=== PATIENT | male | born 1980 | race Caucasian/White ===

== ENCOUNTER 2024-10-19 16:06 | Emergency (ER) | payer OTHER, SELFPAY ==
--- NOTE | 2024-10-19 16:08 | ED_ITS ---
HPI - URI/Sore Throat General Chief Complaint: Asthma Stated Complaint: asthmatic,chest heavy,nose stuffy Time Seen by Provider: 10/19/24 16:08 Source: patient Mode of arrival: ambulatory Limitations: no limitations History of Present Illness HPI Narrative: Lionel is a 44-year-old year old male patient presenting to the clinic today with complaints chest congestion, chest tightness, stuffy nose, nasal drainage, and cough. He reports symptoms have been going on for approximately 3 weeks since he was positive for influenza A.. States cough is productive at times with some yellow phlegm. He denies any fever chills. History of asthma. MD elicited complaint: sore throat and nasal congestion Related Data Allergies Allergy/AdvReac Type Severity Reaction Status Date / Time tramadol Allergy Intermediate Rash Verified 10/19/24 16:26 Review of Systems Review of Systems: Pertinent positives per HPI. Patient denies any fever, chills, rash, headache, visual changes, dizziness, chest pain, palpitations, nausea, vomiting, diarrhea, constipation, abdominal pain, or any urinary issues. PMFSH Comments At the time of my signature, I reviewed and agree with the nursing past medical, surgical, social, and family history. There is no relevant family history pertinent to the patient complaint. Exam Narrative: General: Well-developed, well nourished, in no apparent distress Head: Normocephalic, atraumatic Eyes: Pupils equally round and reactive to light bilaterally, EOM intact, sclera and conjunctive clear, no discharge, lids normal Ears: TMs intact and clear, ear canals clear, no drainage, grossly hearing normal. Nose: Nares patent, clear nasal discharge, no inflammation, no sinus tenderness. Mouth: Oral pharynx without lesions or masses, good dentition, MMM. Neck: Supple, trachea midline, no enlargement of anterior or posterior cervical nodes, no thyroid masses or goiter palpable. Cardio: Regular rate and rhythm, s1 and s2 normal, no murmur appreciated. Resp: Clear to auscultation bilaterally, no rhonchi, rales, wheezing or rubs Course Course Emergency Course: Portions of this record may have been created with voice recognition software. Level of Care: Express Care Visit Vital Signs Vital signs: Vital Signs Temperature 36.8 C 10/19/24 16:20 Pulse Rate 97 10/19/24 16:20 Respiratory Rate 16 10/19/24 16:20 Blood Pressure 129/69 10/19/24 16:20 Pulse Oximetry 98 10/19/24 16:20 Oxygen Delivery Room Air 10/19/24 16:20 Temperature 36.8 C 10/19/24 16:20 Pulse Rate 97 10/19/24 16:20 Respiratory Rate 16 10/19/24 16:20 Blood Pressure 129/69 10/19/24 16:20 Pulse Oximetry 98 10/19/24 16:20 Oxygen Delivery Room Air 10/19/24 16:20 Vital signs reviewed MDM - URI/Sore Throat MDM Narrative Medical decision making narrative: At the time of visit patient is resting comfortably on the exam table. Patient appears to be nontoxic. Plan: I suspect patient has asthma exacerbation. Prescription for prednisone and albuterol inhaler was sent to the pharmacy. Supportive measures were discussed with the patient and they voiced understanding discharge instructions and agrees to treatment plan. Return precautions reviewed Differential Diagnosis Differential diagnosis: Likely upper respiratory infection, otitis media, sinusitis, viral infection, bronchitis, influenza, pharyngitis and other (COVID) Discharge Plan Discharge Clinical Impression: Asthma Qualifiers: Asthma severity: unspecified severity Asthma persistence: unspecified Asthma complication type: unspecified Qualified Code(s): J45.909 - Unspecified asthma, uncomplicated Patient Disposition: Home, Self-Care Condition: Stable Instructions: Antibiotic Form, Asthma (ED) Additional Instructions: Take prescription medications only as prescribed-albuterol inhaler prednisone Increase fluids and stay well hydrated Tylenol/motrin for pain/fever Flonase and OTC antihistamines as directed Vicks vapor rub to open sinuses Sinus rinses for congestion Cepacol spray, cough drops, throat lozenges, warm tea with honey/lemon, gargle salt water to soothe throat BRAT diet for diarrhea Clear liquids x 24 hours then advance as tolerated for nausea/vomiting Go to the ED if you develop a worsening in your condition- high fever not controlled by Tylenol or Motrin, dehydration, weakness, lethargy, shortness of breath, or chest pain. Follow up with your PCP in 3-5 days if symptoms persist. Patient Language: Maltese Prescriptions: New prednisone 20 mg tablet 40 mg PO DAILY 5 Days Qty: 10 0RF albuterol sulfate 90 mcg/actuation HFA aerosol inhaler 2 puff inhalation Q4-6H PRN (Reason: shortness of breath or wheezing) 30 Days Qty: 8.5 0RF Follow-up/Referrals: PHYSICIAN,TRACER LATHE SET UP OPERATOR [Primary Care Provider] - Time of Disposition: 16:24 Quality NIHSS Nursing Documentation ED NIHSS nursing documentation: reviewed/agree
[2024-10-19 16:20] VITALS: BP 129/69; PULSE 97; RESP 16; TEMP 36.8; O2SAT 98
== END 2024-10-19 16:26 | disposition home or self-care (01) ==
PROVIDERS: Emergency Provider Nurse Practitioner Family
DX: J45.909 Unspecified asthma, uncomplicated (principal)
CPT/HCPCS: 99203; G0463

== ENCOUNTER 2024-11-21 04:49 | Emergency (ER) | payer OTHER, SELFPAY ==
--- NOTE | ~2024-11-21 | US_ITS ---
Testicular ultrasound with doppler. Indication: Pain. Technique: Real-time sonography the scrotum was performed. Color flow Doppler and Doppler spectral an alysis were performed. Findings: The testes are homogeneous in echotexture bilaterally. There is no evidence of an intrates ticular mass. The right testis measures 2.5 x 1.2 x 2.3 cm and the left 3.0 x 1.6 x 2.7 cm. There is color-flow seen to both testes. Arterial and venous spectral waveforms are seen in both testes. There is no sonographic evidence of torsion. The head of the epididymis is visualized bilaterally and is within normal limits. Impression: Unremarkable exam. No evidence of torsion or testicular mass. Reviewed, dictated and finalized at location . Impression: Unremarkable exam. No evidence of torsion or testicular mass.
--- NOTE | ~2024-11-21 | CT_ITS ---
Non-contrast CT scan of the Abdomen and Pelvis Clinical indication: Flank pain Technique: 2.5 mm axial scans were obtained through the abdomen and pelvis without intravenous or or al contrast. Dose reduction technique was used on this scan by utilizing automated exposure control a nd iterative reconstruction technique. The dose-length product (DLP) was 653.37 mGy-cm. Findings: Images through the lung bases reveal no abnormalities. Small bilateral renal stones are present, measuring 2 mm. No ureteral stones or hydronephrosis seen c urrently. The liver, spleen, pancreas, and adrenals appear normal. Small gallstones noted. There is no aortic a neurysm. There is no evidence of bowel obstruction. Images through the pelvis were performed. There is no evidence of ascites or lymphadenopathy. Urinary bladder unremarkable. No pelvic mass seen. No ascites. Impression: Small bilateral nonobstructing renal stones. Reviewed, dictated and finalized at [facility]. Impression: Small bilateral nonobstructing renal stones.
--- OUTSIDE RECORDS SUMMARY | 2024-11-21 04:51 | XMS_ITS | Data Portability ---
Author Organization [facility] Address [address] [place] [id number] Assessment No assessment recorded. Plan of Treatment Reminders Order Date Submit Date Provider Last Modified By Organization Details Last Modified Time Details Appointments None recorded. Lab None recorded. Referral physical therapy back referral 2016 017 [email or web address] [facility], Occupational [facility], [address] [place], [address], 7 12:02:26 Procedures None recorded. Surgeries None recorded. Imaging XR, chest, 2 view [address] ([employer] [facility]), [address] [place], [address], 7 16:36:14 Medication Orders dicyclomin e 10 mg capsule 2016 017 INTER[facility]29869, [address] [place], [place], [id number], 7 13:11:19 Viberzi 100 mg tablet 2016 017 [address] [facility], [address] [place], [place], [id number], 7 13:11:30 Viberzi 100 mg tablet 2016 017 [address], [address] [place], [place], [id number], 7 19:03:19 montelukas t 10 mg tablet 2016 017 [facility], [address] [place], [place], [id number], 7 13:11:20 Flovent HFA 110 mcg/actuat ion aerosol inhaler 2016 017 [facility], [address] [place], [place], [id number], 7 13:11:22 Combivent Respimat 20 mcg-100 mcg/actuat ion solution for inhalation 2016 017 [facility], [address] [place] [address], [id number], 7 13:11:20 fluticason e propionate 50 mcg/actuat ion nasal spray,susp ension 2016 017 [facility], [address] [place], [place], [id number], 7 13:11:22 carisoprod ol 350 mg tablet [address] [facility] #06552, [address] [place], [place], [id number], 7 13:11:30 omeprazole 20 mg capsule,de layed release 2016 017 [facility], [address] [place], [place], [id number], 7 13:11:20 lisinopril 20 mg tablet 2016 017 [facility], [address] [place], [place], [id number], 7 13:11:21 Bystolic 10 mg tablet 2016 017 [facility], [address] [place], [place], [id number], 7 13:11:23 escitalopr am 20 mg tablet 2016 017 INTERFACE [facility] #78440, [address] [place], [place], [id number], 7 13:11:23 cetirizine 10 mg tablet 2016 017 INTERFACE [facility] #99614, [address] [place], [place], [id number], 7 13:11:24 Patient TargetsNo targets recorded. Patient InstructionsNo instructions recorded. Reason for Referral Referring Physician: Kenroy Helms, Internal Medicine, Encounter Date: 08/31/2016 Results Created Date Observation Date Name Description Value Unit Range Abnormal Flag Note LastModifiedBy Organization Detail LastModifiedTime 05/23/20 17 05/23/2017 XR, cervi sukhdev spine , 4 or 5 view No observ ation record ed. [address] [place], [address], 05/27/2017 10:05:21 05/23/20 17 05/23/2017 US, head + neck, soft tissu e No observ ation record ed. [address] [place], [address], 05/27/2017 10:04:57 05/24/20 17 05/23/2017 XR, lumba r spine No observ ation record ed. [address] (Imaging) [address] [place], [address], 05/27/2017 10:04:09 Result Notes None recorded. Problems Name Problem SNOMED Code Status Onset Date Resolution Date Notes Provider Name and Address Organization Details Recorded Time Essential hypertension 97332037 Active 2016 Kenroy Helms MD Attn: Accountin g,[address] [facility], [place], [address], [place] [facility] 7 12:52:18 Asthma 324348936 Active 2016 Kenroy Helms MD Attn: Accountin g,[address] [facility], [place], [address], [place] [facility] 7 12:52:26 Gastroesophage al reflux disease without esophagitis 620210368 Active 2016 Kenroy Helms MD Attn: Accountin g,[address] [facility], [place], [address], [place] [facility] 7 12:52:49 Irritable bowel syndrome 70360875 Active 2016 Kenroy Helms MD Attn: Accountin g,[address] [facility], [place], [address], [place] [facility] 7 12:53:09 Bipolar disorder 10289197 Active 2016 Kenroy Helms MD Attn: Accountin g,[address] [facility], [place], [address], [place] [facility] 7 12:53:26 Depressive disorder 90156921 Active 2016 Kenroy Helms MD Attn: Accountin g,[address] [facility], [place], [address], [place] [facility] 7 13:03:09 Serous otitis media 16632742 Active 2016 Kenroy Helms MD Attn: Marinain g,[address] [facility], [place], [address], [place] [facility] 7 13:06:31 Chronic back pain 362405087 Active 2016 Kenroy Helms MD Attn: Teofilo g,[address] [facility], [place], [address], [place] [facility] 7 13:08:35 Allergic rhinitis 17406396 Active 2016 Kenroy Helms MD Attn: Teofilo blackburn,[address], [place], [address], [place] [facility] 7 16:33:01 Cough 97991899 Active 2016 Kenroy Helms MD Attn: Teofilo blackburn,[address], [place], [address], [place] [facility] 7 16:33:22 Problem Notes None recorded. Procedures Surgical History Date Name Laterality Status Provider Name and Address Organization Details Recorded Time Carpal tunnel surgery completed Robbie Joshi [place] - [facility] 08/31/2016 11:31:52 Eye Surgery completed Robbie Randolphrick [place] - [facility] 0 08/31/2016 11:32:00 Imaging Results Imaging Date Name Status LastModified by Organiz ation Details LastModified Time 05/23/2017 XR, cervical spine, 4 or 5 view completed [address] [place], [address], 05/27/2017 10:05:21 05/23/2017 US, head + neck, soft tissue completed [email or web address] [facility] [address] [place], [address], 05/27/2017 10:04:57 05/23/2017 XR, lumbar spine completed [email or web address] (Imaging) [address] [place], [address], 05/27/2017 10:04:09 Procedure Notes None recorded. Medical Equipment None Reported. Allergies Allergen ID Allergen Name Allergen Category Reaction Reaction Severity Criticality Documentation Date Start Date Code Code System Note Provider Name and Address Organization Details Recorded Time 25912 tramadol medicatio n itching moderate Not available 08/31/2016 30468 RxNorm Not Available Not Available Not Available Medications Name Sig Start Date Stop Date Status Note LastModified by Organization Details LastModified Time Prescription - Prior Authorization Request active Not Available Not Available Not Available carisoprodol 350 mg tablet Take 1 tablet every 8 hours by oral route as needed. active Not Available Not Available No t Available cyclobenzaprin e 10 mg tablet TAKE 1 TABLET BY MOUTH EVERYDAY AT BEDTIME active Not Available Not Available No t Available methocarbamol 500 mg tablet TAKE 2 TABLETS BY MOUTH TWICE A DAY active Not Available Not Available No t Available doxepin 50 mg capsule active Not Available Not Available Not Available prednisone 10 mg tablet active Not Available Not Available No t Available gabapentin 600 mg tablet active Not Available Not Available No t Available citalopram 40 mg tablet active Not Available Not Available No t Available cetirizine 10 mg tablet TAKE 1 TABLET BY MOUTH EVERY DAY 2017 active Not Available Not Available Not Avai lable ibuprofen 800 mg tablet TAKE 1 TABLET BY MOUTH THREE TIMES A DAY active Not Available Not Available No t Available doxepin 25 mg capsule active Not Available Not Available Not Available lisinopril 20 mg tablet Take 1 tablet every day by oral route. active Not Available Not Available No t Available dextroamphetam ine-amphetamin e 10 mg tablet active Not Available Not Availab le Not Available quetiapine 200 mg tablet TAKE 1 TABLET BY MOUTH ONCE EVERY NIGHT AT BEDTIME active Not Available Not Available No t Available sumatriptan 50 mg tablet TAKE 1 TABLET BY MOUTH FOR HEADACHE, MAY REPEAT ONCE IN 2 HOURS IF NO RELIEF, MAX 4 TABS X 24 HOURS active Not Available Not Available No t Available hydrocodone 10 mg-acetaminoph en 325 mg tablet active Not Available Not Available Not Available meloxicam 7.5 mg tablet active Not Available Not Available No t Available tamsulosin 0.4 mg capsule TAKE 1 CAPSULE BY MOUTH EVERY DAY active Not Available Not Available No t Available dicyclomine 20 mg tablet active Not Available Not Available No t Available amlodipine 10 mg tablet TAKE 1 TABLET BY MOUTH EVERY DAY active Not Available Not Available No t Available doxycycline monohydrate 100 mg capsule active Not Available Not Availab le Not Available cephalexin 500 mg capsule TAKE 1 CAPSULE BY MOUTH EVERY 8 HOURS FOR 10 DAYS. active Not Available Not Available No t Available buspirone 10 mg tablet active Not Available Not Available No t Available dextroamphetam ine-amphetamin e 20 mg tablet TAKE 1 TABLET BY MOUTH TWICE A DAY active Not Available Not Available No t Available Qvar 40 mcg/actuation Metered Aerosol oral inhaler active Not Available Not Available Not Available guanfacine 1 mg tablet active Not Available Not Available No t Available gabapentin 300 mg capsule active Not Available Not Available N ot Available omeprazole 20 mg capsule,delaye d release active Not Available Not Available No t Available diclofenac sodium 75 mg tablet,delayed release active Not Available Not Available Not Available montelukast 10 mg tablet Take 1 tablet every day by oral route. 2016 active Not Available Not Available Not Avai lable testosterone cypionate 200 mg/mL intramuscular oil INJECT 1.5 ML INTO THE MUSCLE EVERY 2 WEEKS (SINGLE USE VIALS. DISCARD AFTER USE.) active Not Available Not Available No t Available ibuprofen 600 mg tablet TAKE 1 TABLET BY MOUTH EVERY 6 HOURS NEEDED FOR PAIN active Not Available Not Available No t Available methylpredniso lone 4 mg tablets in a dose pack TAKE 6 TABLETS ON DAY 1 DIRECTED ON PACKAGE AND DECREASE BY 1 TAB EACH DAY FOR A TOTAL OF 6 DAYS active Not Available Not Available No t Available albuterol sulfate HFA 90 mcg/actuation aerosol inhaler INHALE 2 PUFFS BY MOUTH EVERY 4 6 HOURS NEEDED active Not Available Not Available No t Available losartan 100 mg tablet TAKE 1 TABLET BY MOUTH EVERY DAY active Not Available Not Available No t Available fluticasone propionate 50 mcg/actuation nasal spray,suspensi on SPRAY 1 SPRAY INTO EACH NOSTRIL ONCE DAILY active Not Available Not Available No t Available dicyclomine 10 mg capsule TAKE 1 CAPSULE BY MOUTH THREE TIMES DAILY 2017 active Not Available Not Available Not Avai lable finasteride 5 mg tablet active Not Available Not Available No t Available naproxen 500 mg tablet TAKE 1 TABLET BY MOUTH 2 TIMES PER DAY. TAKE WITH FOOD active Not Available Not Available No t Available amoxicillin 875 mg-potassium clavulanate 125 mg tablet active Not Available Not Availabl e Not Available olmesartan 40 mg tablet TAKE 1 TABLET BY MOUTH EVERY DAY active Not Available Not Available No t Available escitalopram 20 mg tablet TAKE 1 TABLET BY MOUTH EVERY DAY active Not Available Not Available No t Available cyclobenzaprin e 5 mg tablet TAKE 1 TABLET BY MOUTH NIGHTLY NEEDED FOR MUSCLE SPASMS active Not Available Not Available No t Available Flovent HFA 110 mcg/actuation aerosol inhaler INHALE 1 PUFF BY MOUTH TWICE DAILY active Not Available Not Available No t Available BD Integra Syringe 3 mL 25 gauge x 1 USE DIRECTED active Not Available Not Available No t Available quetiapine 50 mg tablet active Not Available Not Available No t Available Bystolic 10 mg tablet active Not Available Not Available Not Available Combivent Respimat 20 mcg-100 mcg/actuation solution for inhalation INHALE 1 PUFF BY MOUTH FOUR TIMES DAILY active Not Available Not Available No t Available Viberzi 100 mg tablet Take 1 tablet twice a day by oral route. 2016 active Not Available Not Available Not Avai lable Vraylar 3 mg capsule TAKE 1 CAPSULE BY MOUTH EVERY DAY active Not Available Not Available No t Available Vitals Date Recorded Body height Body weight Body mass index (BMI) Body temperature Oxygen saturation Oxygen saturation in Arterial blood by Pulse oximetry Heart rate Respiratory rate Systolic blood pressure Diastolic blood pressure Provider Name and Address Organization Details Last Updated DateTime 170.18 cm 18137.4 6 g 32.3 kg/m2 98.4 [degF] 99 % 99 % 80 /min 20 /min 126 mm[Hg] 84 mm[Hg] Robbie Adi [facility] 11:27:22 Date Recorded Body height Body weight Body mass index (BMI) Body temperature Heart rate Oxygen saturation Oxygen saturation in Arterial blood by Pulse oximetry Respiratory rate Systolic blood pressure Diastolic blood pressure Provider Name and Address Organization Details Last Updated DateTime 170.18 cm 47638.0 7 g 31.5 kg/m2 97.7 [degF] 73 /min 98 % 98 % 20 /min 112 mm[Hg] 70 mm[Hg] Robbie Adi [facility] 15:39:42 Social History None recorded. Functional Status None recorded. Mental Status None recorded. Family History Relationship Description Onset Age of this Age Resolved Age Notes LastModified by Organization Details LastModified Time Mother Attention deficit hyperactivit y disorder [email or web address] Not available 08/03 11:29:35 Mother Carcinoma of breast [email or web address] Not available 08/31 11:29:52 Mother Depressive disorder Not available 08/31 11:30:07 Mother Diabetes mellitus Not available 08/31 11:30:16 Mother Osteoporosis [email or web address] Not karuna ilable 08/31/2016 11:30:33 Father Hypertensive disorder [email or web address] Not available 08/31 11:30:46 Father Hyperlipidem ia [email or web address] Not available 08/31 11:30:57 Medical History No medical history recorded. Immunizations Vaccine Type Date Status Note Provider Nam e and Address Organization Details Recorded Time COVID-19, mRNA, LNP-S, PF, 100 mcg/0.5mL dose or 50 mcg/0.25mL dose 11/22/2020 completed Lillian Miguel RN null, [place] [facility] 11/24/2020 10:34:55 COVID-19, mRNA, LNP-S, PF, 100 mcg/0.5mL dose or 50 mcg/0.25mL dose 12/19/2020 completed Yaneli Damon [place], [place] [facility] 12/26/2020 14:16:25 Past Encounters Encounter ID Performer Location Encounter Start Date Encounter Closed Date Diagnosis/Indication Diagnosis SNOMED-CT Code Diagnosis ICD10 Code Diagnosis Note [id number] MD Justyn Faustin (Adult Med) [address] [place] [address] 08/31/2016 10:58:50 08/31/2016 14:32:45 Essential hypertension 94533223 I10 Irritable bowel syndrome 28547040 K58.9 Asthma 117114820 J45.90 9 Gastroesop hageal reflux disease without esophagitis 793416603 K21.9 Depressive disorder 3548 9007 F32.9 Serous otitis media 8032 7007 H65.93 Chronic back pain 244735 002 G89.29 [id number] Kenroy Helms MD [facility] (Adult Med) [address] [place] [phone] 09/14/2016 15:17:59 2016 09:34:03 Asthma 985065852 J45.909 Allergic rhinitis 164315 04 J30.9 Continue current regimen Cough 52678006 R05 [id number] Lillian Miguel RN [facility] (Adult Med) [address] [place] [address] 11/22/2020 18:51:10 11/25/2020 12:18:33 Administration of SARS-CoV-2 antigen vaccine 670261041 Z23 [id number] Lillian Miguel RN [facility] (Adult Med) [address] [place] [address] 12/19/2020 15:04:26 01/01/2021 08:35:58 Administration of SARS-CoV-2 antigen vaccine 723079589 Z23 Health Concerns Section Related Observation LastModified by Organization Detai ls LastModified Time None Recorded Concern Status LastModified by Organization Details LastModified Time None Recorded Advance Directives Directive None Recorded Payers Encounter Date Sequence Insurance Name Policy Number Policy Cmnulty Covered Member ID Mcnulty Member ID Guarantor Name 08/31/2016 1 [place] [facility] Lionel Borrero [id number] Lionel Yapam 09/14/2016 1 [facility] (MEDICAID HMO) [id number] Lionel Castorenaetsam [id number] Lionel Castorenaetsam 11/22/2020 1 [facility] (MEDICAID HMO) [id number] Lionel Castorenaetsam [id number] Lionel Castorenaetsam 12/19/2020 1 [facility] [id number] Lionel Yapam [id number] Lionel Castorenaetsam 12/19/2020 2 [place] [facility] Lionel Yapam [id number] [facility] Notes Date Note Type Note Provider Name and Address Organization Details Recorded Time 08/31/2016 text/html Changing physicians. Has a current URI. Has been treated in past for HTN, Asthma and IBS Kenroy Helms MD Attn: Accounting,[address] [place], [address], [facility] 09/01/2016 19:04:03 09/14/2016 text/html Recently seen . Concerned about no change in sx. Ne fever or chills. Does not smoke. Kenroy Helms MD Attn: Accounting,[address] [place], [address], [facility] 09/14/2016 16:37:08
--- OUTSIDE RECORDS SUMMARY | 2024-11-21 04:51 | XMS_ITS | Data Portability ---
Author Organization [facility] Main Office Address [address] [place] [address] Assessment Encounter Date Assessment Date Assessment LastModified by Organization Details LastModified Time 06/03/2023 06/03/2023 The patient gave verbal consent using TelePhonic services and the consent is documented in the medical record prior to using the service. The patient has been informed of what a TeleMedicine visit is. Patient is located at home. Provider is located at office. Names and roles of persons in addition to the patient and provider participating in telemedicine services include none. The patient had a 10 minute TeleMedicine consultation via phone call to discuss the following: [email or web address] Not available 09/21/2023 10:57:25 Plan of Treatment Reminders Order Date Submit Date Provider Last Modified By Organization Details Last Modified Time Details Appointments None recorded. Lab TSH, serum or plasma [address] (Lab), [address] [place], [address], 3 16:55:21 CMP, serum or plasma [address] (Lab), [address] [place], [address], 3 16:57:05 CBC [address] (Lab), [address] [place], [address], 3 16:55:39 vitamin D, 25-hydroxy, total, serum [address] (Lab), [address] [place], [address], 3 16:56:41 testosteron e, free + total, serum [address] (Lab), [address] [place], [address], 3 16:53:49 vitamin B12 + folate, serum or blood [address] (Lab), [address] [place], [address], 3 16:54:[address] referral 2022 023 [facility], [facility] [place], [address], 3 16:05:20 Procedures None recorded. Surgeries None recorded. Imaging None recorded. Medication Orders losartan 100 mg tablet 2023 024 [facility]Pharmacy #[id number], [address] [facility], [place], [address], 4 15:34:23 amlodipine 10 mg tablet 2023 024 [facility]/Pharmacy #[id number], [address] , [place], [address], 4 15:34:28 dextroamphe tamine-amph etamine 30 mg tablet 2023 024 [facility]/Pharmacy #[id number], [address] , [place], [address], 4 15:34:28 Vitamin D3 50 mcg (2,000 unit) capsule 2022 023 [facility]/Pharmacy #[id number], [address], [place], [address], 3 09:55:46 dextroamphe tamine-amph etamine 30 mg tablet 2022 023 [id number], [address], [place], [address], 3 09:55:47 dextroamphe tamine-amph etamine 30 mg tablet 2022 023 [facility]/Pharmacy #[id number], [address], [place], [address], 11:20:54 Patient TargetsNo targets recorded. Patient InstructionsNo instructions recorded. 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 external ear Referring Physician: Martine Arredondo, Family Medicine, Encounter Date: 01/27/2023 Results Created Date Observation Date Name Description Value Unit Range Abnormal Flag Note LastModifiedBy Organization Detail LastModifiedTime 02/02/20 23 02/01/2023 COMPR EHENS BREANA METAB OLIC PANEL glucose 69 mg/dL 65-99 normal Fasti ng refer ence inter rebecca Not Available [address] [address] [place], [address], 02/01/2023 17:01:44 02/02/2002/01/2023 COMPR EHENS BREANA METAB OLIC PANEL urea nitrogen (BUN) 7 mg/dL 7-25 normal Not Available [facility] [address] [address] [place], [address], 02/01/2023 17:01:44 02/02/2002/01/2023 COMPR EHENS BREANA METAB OLIC PANEL creatinine 1.13 mg/dL 0.60-1 .29 normal Not Available [facility] [address] [address] [place], [address], 02/01/2023 17:01:44 02/02/20 23 02/01/2023 COMPR EHENS BREANA METAB OLIC PANEL eGFR 83 mL/mi n/1.7 3m2 > or = 60 normal The eGFR is based on the CKD-E PI 2020 equat ion. To calcu late the new eGFR from a previ ous Creat inine or Cysta tin C resul t, go to https ://nancy wellington.sim flowers.o franca/jesse ofess ional s/ kdoqi /gfr% 5Fcal culat or Not Available [address] [address] [place], [address], 02/01/2023 17:01:44 02/02/20 23 02/01/2023 COMPR EHENS BREANA METAB OLIC PANEL BUN/creatini ne ratio NOT APPLIC ABLE (calc ) 6-22 Not Available [address], [address], 02/01/2023 17:01:44 02/02/20 23 02/01/2023 COMPR EHENS BREANA METAB OLIC PANEL sodium 141 mmol/ L 135-14 6 normal Not Available [facility] [address], [address], 02/01/2023 17:01:44 02/02/20 23 02/01/2023 COMPR EHENS BREANA METAB OLIC PANEL potassium 3.7 mmol/ L 3.5-5. 3 normal Not Available [facility] [address], [address], 02/01/2023 17:01:44 02/02/20 23 02/01/2023 COMPR EHENS BREANA METAB OLIC PANEL chloride 102 mmol/ L 98-110 normal Not Available [facility] [address], [address], 02/01/2023 17:01:44 02/02/20 23 02/01/2023 COMPR EHENS BREANA METAB OLIC PANEL carbon dioxide 25 mmol/ L 20-32 normal Not Available [facility] [address], [address], 02/01/2023 17:01:44 02/02/20 23 02/01/2023 COMPR EHENS BREANA METAB OLIC PANEL calcium 9.9 mg/dL 8.6-10 .3 normal Not Available [address], [address], 02/01/2023 17:01:44 02/02/20 23 02/01/2023 COMPR EHENS BREANA METAB OLIC PANEL protein, total 7.2 g/dL 6.1-8. 1 normal Not Available [address], [address], 02/01/2023 17:01:44 02/02/20 23 02/01/2023 COMPR EHENS BREANA METAB OLIC PANEL albumin 4.7 g/dL 3.6-5. 1 normal Not Available [address], [address], 02/01/2023 17:01:44 02/02/20 23 02/01/2023 COMPR EHENS BREANA METAB OLIC PANEL globulin 2.5 g/dL_ (calc ) 1.9-3. 7 normal Not Available [address], [place], [address], 02/01/2023 17:01:44 02/02/20 23 02/01/2023 COMPR EHENS BREANA METAB OLIC PANEL albumin/glob ulin ratio 1.9 (calc ) 1.0-2. 5 normal Not Available [address], [address], 02/01/2023 17:01:44 02/02/20 23 02/01/2023 COMPR EHENS BREANA METAB OLIC PANEL bilirubin, total 0.4 mg/dL 0.2-1. 2 normal Not Available [address], [address], 02/01/2023 17:01:44 07/04/20 23 02/01/2023 COMPR EHENS BREANA METAB OLIC PANEL alkaline phosphatase 58 U/L 36-130 normal Not Available [address], [address], 02/01/2023 17:01:44 02/02/20 23 02/01/2023 COMPR EHENS BREANA METAB OLIC PANEL AST 28 U/L 10-40 normal Not Available [address], [address], 02/01/2023 17:01:44 02/02/20 23 02/01/2023 COMPR EHENS BREANA METAB OLIC PANEL ALT 42 U/L 9-46 normal Not Available [address], [address], 02/01/2023 17:01:44 02/02/20 23 02/01/2023 CBC (H/H, RBC, INDIC ES, WBC, PLT) white blood cell count 6.2 thous and/u L 3.8-10 .8 normal Not Available [address], [address], 02/01/2023 17:01:45 02/02/20 23 02/01/2023 CBC (H/H, RBC, INDIC ES, WBC, PLT) red blood cell count 5.43 bora on/uL 4.20-5 .80 normal Not Available [address], [address], 02/01/2023 17:01:45 02/02/20 23 02/01/2023 CBC (H/H, RBC, INDIC ES, WBC, PLT) hemoglobin 17.3 g/dL 13.2-1 7.1 high Not Available [address], [address], 02/01/2023 17:01:45 02/02/20 23 02/01/2023 CBC (H/H, RBC, INDIC ES, WBC, PLT) hematocrit 51.0 % 38.5-5 0.0 high Not Available [address], [address], 02/01/2023 17:01:45 02/02/20 23 02/01/2023 CBC (H/H, RBC, INDIC ES, WBC, PLT) MCV 93.9 fL 80.0-1 00.0 normal Not Available [address], [address], 02/01/2023 17:01:45 02/02/20 23 02/01/2023 CBC (H/H, RBC, INDIC ES, WBC, PLT) MCH 31.9 pg 27.0-3 3.0 normal Not Available [address], [address], 02/01/2023 17:01:45 02/02/20 23 02/01/2023 CBC (H/H, RBC, INDIC ES, WBC, PLT) MCHC 33.9 g/dL 32.0-3 6.0 normal Not Available [address], [address], 02/01/2023 17:01:45 02/02/20 23 02/01/2023 CBC (H/H, RBC, INDIC ES, WBC, PLT) RDW 12.7 % 11.0-1 5.0 normal Not Available [address], [address], 02/01/2023 17:01:45 02/02/20 23 02/01/2023 CBC (H/H, RBC, INDIC ES, WBC, PLT) platelet count 328 thous and/u L 140-40 0 normal Not Available [address], [address], 02/01/2023 17:01:45 02/02/20 23 02/01/2023 CBC (H/H, RBC, INDIC ES, WBC, PLT) MPV 9.7 fL 7.5-12 .5 normal Not Available [address], [address], 02/01/2023 17:01:45 02/02/20 23 02/01/2023 CLPARDEEP T EDUCA TION TRACK ING client education tracking The Requi sitio n we recei [place] did not inclu de a [facility] accou nt numbe r. To preve nt delay s in testi ng and proce ssing of your order s pleas e provi de the follo wing infor matio n with every order submi tted: [facility] accou nt numbe r and accou nt name Clien t addre ss Clien t phone and fax numbe r NPI numbe r of order ing physi олег along with the physi олег name. Not Available [address], [address], 02/01/2023 17:01:45 02/02/20 23 02/01/2023 TSH TSH 1.00 mIU/L 0.40-4 .50 normal Not Available [address], [address], 02/01/2023 17:01:46 02/02/20 23 02/01/2023 VITAM IN B12/F OLATE , SERUM PANEL vitamin B12 432 pg/mL 200-11 00 normal Not Available [address], [address], 02/01/2023 17:01:46 02/02/20 23 02/01/2023 VITAM IN B12/F OLATE , SERUM PANEL folate, serum 9.3 NG/mL normal Refer ence Range Low: <3.4 Borde rline : 3.4-5 .4 Yolanda l: >5.4 Not Available [address], [address], 02/01/2023 17:01:46 07/04/20 23 02/01/2023 VITAM IN D,25- OH,TO BUD,I A vitamin D,25-oh,tota l,ia 26 NG/mL 30-100 low Vitam in D Statu s 25-OH Vitam in D: Defic iency : <20 ng/mL Insuf ficie ncy: 20 - 29 ng/mL Optim al: > or = 30 ng/mL For 25-OH Vitam in D testi ng on patie nts on D2-melissa pplem entat ion and patie nts for whom quant itati on of D2 and D3 fract ions is requi red, the [facility] Assur eD(TM ) 25-OH VIT D, (D2,D 3), LC/MS /MS is recom aj d: order code 57998 (gilberto ents >2yrs ). See Note 1 Note 1 For addit ional omairar matthew lan refer to http: //[facility] nataly roberto ics.c om/fa q/FAQ 199 (This link is being provi ded for infor zohra nal/ educa santana l purpo ses only. ) Not Available [address] , [place], [address], 02/01/2023 17:01:47 02/02/20 23 02/01/2023 TESTO STERO NE, FREE (DIAL YSIS) AND TOTAL ,MS testosterone , total, MS 404 NG/dL 250-11 00 For addit ional infor matthew lan refer to https ://ed ucati on.qu scotty [employer]. com/f aq/FA Q165 (This link is being provi ded for infor matio nal/e ducat ional purpo ses only. ) (Note ) This test was devel oped and its roselia tical perfo rmanc e jigar cteri stics have been deter mined by [employer]. It has not been clear ed or appro [place] by the FDA. This assay has been valid ated pursu ant to the CLIA regul ation s and is used for clini sukhdev purpo ses. Not Available [facility] [address] [address] [place], [address], 02/01/2023 17:01:48 02/02/20 23 02/01/2023 TESTO STERO NE, FREE (DIAL YSIS) AND TOTAL ,MS testosterone , free 64.3 pg/mL 35.0-1 55.0 (Note ) This test was devel oped and its roselia tical perfo rmanc e jigar cteri stics have been deter mined by [employer]. It has not been clear ed or appro [place]er[place] by the FDA. This assay has been valid ated pursu ant to the CLIA regul ation s and is used for clini sukhdev purpo ses. F med fusio n [address] [facility] [address] [facility] [address] [phone] Tl hernandez MD NO COLLE CTION DATE RECEI [place]. WE HAVE USED THE DATE THE SPECI MEN WAS RECEI [place] BY THIS LABOR ATORY THE COLLE CTION DATE. IF THIS IS INCOR RECT, PLEAS E CONTA CT CLIEN T SERVI SHAVON. PHONE NUMBE R: [phone] Not Available [facility] [address] [address] [place], [address], 02/01/2023 17:01:48 01/25/20 24 01/25/2024 DRUG MONIT OR, PANEL 3, SCREE N, URINE amphetamines POSITI VE NG/mL <500 abnormal See Note A See Note A Not Available [facility] [address] [address] [place], [address], 01/25/2024 01:20:07 01/25/20 24 01/25/2024 DRUG MONIT OR, PANEL 3, SCREE N, URINE benzodiazepi drew NEGATI VE NG/mL <100 See Note A See Note A Not Available [facility] [address] [address] [place], [address], 01/25/2024 01:20:07 01/25/20 24 01/25/2024 DRUG MONIT OR, PANEL 3, SCREE N, URINE cocaine metabolite NEGATI VE NG/mL <150 See Note A See Note A Not Available [address], [place], [address], 01/25/2024 01:20:07 01/25/20 24 01/25/2024 DRUG MONIT OR, PANEL 3, SCREE N, URINE marijuana metabolite NEGATI VE NG/mL <20 See Note A See Note A Not Available [address], [place], [address], 01/25/2024 01:20:07 01/25/20 24 01/25/2024 DRUG MONIT OR, PANEL 3, SCREE N, URINE opiates NEGATI VE NG/mL <100 See Note A See Note A Not Available [address], [place], [address], 01/25/2024 01:20:07 01/25/20 24 01/25/2024 DRUG MONIT OR, PANEL 3, SCREE N, URINE oxycodone NEGATI VE NG/mL <100 See Note A See Note A Not Available [address], [place], [address], 01/25/2024 01:20:07 01/25/20 24 01/25/2024 DRUG MONIT OR, PANEL 3, SCREE N, URINE creatinine 68.3 mg/dL > or = 20.0 Not Available [address] [address], [place], [address], 01/25/2024 01:20:07 01/25/20 24 01/25/2024 DRUG MONIT OR, PANEL 3, SCREE N, URINE pH 5.6 4.5-9. 0 Not Available [address] [address], [place], [address], 01/25/2024 01:20:07 01/25/20 24 01/25/2024 DRUG MONIT OR, PANEL 3, SCREE N, URINE oxidant NEGATI VE mcg/m L <200 Not Available [id number] [place], [address], 01/25/2024 01:20:07 Result Notes None recorded. Problems Name Problem SNOMED Code Status Onset Date Resolution Date Notes Provider Name and Address Organization Details Recorded Time Benign hypertension 48636375 Active [facility] 19:[facility] Testicular hypofunction 590971757 Active Not Available [facility] 3 19:53:08 Asthma 835523393 Active Not Available [facility] 3 19:53:08 Microscopic hematuria 201098469 Active Not Available [facility] 3 19:53:08 Abdominal pain 51482011 Active Not Available [facility] 19:53:08 Undifferentia sriram attention deficit disorder 49112910 Active Not Available [facility] 3 19:53:08 Gastroesophag eal reflux disease 384312336 Active Not Available [facility] 3 19:53:08 Low back pain 549874541 Active Not Available [facility] 3 19:53:08 Chest pain 10481446 Active Not Available [facility] 3 19:53:09 Ureteric stone 46271086 Active Not Available [facility] 3 19:53:09 Attention deficit hyperactivity disorder, 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 Not Available [facility] 3 19:53:09 Sinusitis 64559911 Active Not Available [facility] 3 19:53:09 Moderate asthma 621192995 Active Not Available [facility] 3 19:53:09 Disorder of vitamin B12 720168749 Active Not Available [facility] 3 19:53:09 Gastrointesti nal Crohn's disease 423317417 Active Not Available [facility] 3 19:53:09 Anxiety 74008405 Active Not Available [facility] 3 19:53:09 Essential hypertension 54670561 Active Not Available [facility] 19:53:09 Diarrhea 93826686 Active Not Available [facility] 3 19:53:09 Spina bifida occulta 75657094 Active 2016 Not Available [facility] 19:53:09 Chronic rhinitis 02466877 Active Not Available [facility] 3 19:53:09 Seasonal allergy 791228434 Active 2022 Not Available [facility] 3 19:53:09 Lesion of external ear 280588801 Active 2022 Not Available [facility] 3 19:53:09 Malaise and fatigue 814685841 Active 2022 Not Available [facility] 3 19:53:08 Vitamin D deficiency 25566447 Active 2022 Not Available [facility] 3 19:53:09 Problem Notes None recorded. Medical Equipment None Reported. Allergies Allergen ID Allergen Name Allergen Category Reaction Reaction Severity Criticality Documentation Date Start Date Code Code System Note Provider Name and Address Organization Details Recorded Time 67670 tramadol medicatio n hives Not available Not available 09/29/2022 20008 RxNorm Not Available [facility] 3 07:35:34 Medications Name Sig Start Date Stop Date Status Note LastModified by Organization Details LastModified Time losartan 50 mg tablet TK 1 T PO QD 04/27 completed Not Available Not Available Not Available carisoprodo l 350 mg tablet 12/06 completed Not Available Not Available Not Available cyclobenzap rine 10 mg tablet Take 1 tablet 3 times a day by oral route as needed for 30 days. 08/07 completed Not Available Not Available Not Available amoxicillin 500 mg capsule TK 1 C PO BID FOR 10 DAYS 09/02 completed Not Available Not Available Not Available atorvastati n 40 mg tablet TAKE 1 TABLET BY MOUTH EVERY DAY active Not Available Not Available No t Available methocarbam ol 500 mg tablet active Not Available Not Available Not Available doxepin 50 mg capsule 12/06 completed Not Available Not Available Not Available bupropion HCl SR 150 mg tablet,12 hr sustained-r elease 10/24 completed Not Available Not Available Not Available prednisone 10 mg tablet Take by oral route. 12/06 completed Not Available Not Available Not Available BD Luer-Mak Syringe 3 mL 20 gauge x 1 1/2 active Not Available Not Available Not Available gabapentin 600 mg tablet TK 1 T PO TID 12/06 completed Not Available Not Available Not Available Ceftin 500 mg tablet Take 1 tablet every 12 hours by oral route for 7 days. 10/05 completed Not Available Not Available Not Available citalopram 40 mg tablet TK 1 T PO QD 10/04 completed Not Available Not Available Not Available trazodone 50 mg tablet 10/24 completed Not Available Not Available Not Available cetirizine 10 mg tablet TAKE 1 TABLET BY MOUTH EVERY DAY active Not Available Not Available No t Available azithromyci n 250 mg tablet TK 2 TS PO FIRST DAY THEN TK 1 T PO QD 05/04 completed Not Available Not Available Not Available ibuprofen 800 mg tablet 07/05 completed Not Available Not Available Not Available doxepin 25 mg capsule 12/06 completed Not Available Not Available Not Available clarithromy jodie 500 mg tablet 01/03 completed Not Available Not Available Not Available hydrocodone 5 mg-acetamin ophen 325 mg tablet Take 1 to 2 TABLETS EVERY 6 HOURS by oral route as needed for pain active Not Available Not Available No t Available meloxicam 15 mg tablet 10/24 completed Not Available Not Available Not Available Librax (with clidinium) 5 mg-2.5 mg capsule TK ONE C PO BID 10/05 completed Not Available Not Available Not Available lisinopril 20 mg tablet TK 1 T PO QD 06/07 completed rash Not Available Not Available Not Available ondansetron HCl 4 mg tablet 01/03 completed Not Available Not Available Not Available prednisone 20 mg tablet TAKE 2 TABLETS BY MOUTH DAILY FOR 5 DAYS active Not Available Not Available No t Available dextroamphe tamine-amph etamine 10 mg tablet TK 1 T PO BID 10/04 completed Not Available Not Available Not Available testosteron e cypionate 100 mg/mL intramuscul ar oil INJECT 3ML INTRAMUSC ULARLY EVERY 2 WEEKS 04/25 completed Not Available Not Available Not Available quetiapine 200 mg tablet TAKE 1 TABLET BY MOUTH EVERYDAY AT BEDTIME active Not Available Not Available No t Available sumatriptan 50 mg tablet TAKE 1 TABLET BY MOUTH FOR HEADACHE, MAY REPEAT ONCE IN 2 HOURS IF NO RELIEF. MAX OF 4 TABLETS IN 24 HOURS active Not Available Not Available No t Available diphenoxyla te-atropine 2.5 mg-0.025 mg tablet TK 1 T PO BID PRN 05/05 completed Not Available Not Available Not Available topiramate 25 mg tablet tk 1 tab po qhs active Not Available Not Available No t Available metronidazo le 500 mg tablet 01/03 completed Not Available Not Available Not Available hydroxyzine HCl 50 mg tablet Take 1 tablet 3 times a day by oral route as needed for 30 days. active Not Available Not Available No t Available acetaminoph en 300 mg-codeine 30 mg tablet Take 1 tablet every 6 hours by oral route. 06/29 completed Not Available Not Available Not Available ciprofloxac in 250 mg tablet Take 1 tablet every 12 hours by oral route for 7 days. active Not Available Not Available No t Available ciprofloxac in 500 mg tablet Take 1 tablet every 12 hours by oral route for 10 days. active Not Available Not Available No t Available sulfamethox azole 800 mg-trimetho prim 160 mg tablet Take 1 tablet every 12 hours by oral route with meals for 2 days. active Not Available Not Available No t Available hydrocodone 10 mg-acetamin ophen 325 mg tablet TK 1 T PO TID PRN 12/06 completed Not Available Not Available Not Available peg-electro lyte solution 420 gram oral solution 10/24 completed Not Available Not Available Not Available omeprazole 40 mg capsule,del ayed release Take 1 capsule every day by oral route. 10/05 completed Not Available Not Available Not Available tramadol 50 mg tablet 10/24 completed Not Available Not Available Not Available triamcinolo ne acetonide 0.1 % topical cream APPLY A THIN LAYER TO THE AFFECTED AREA(S) BY TOPICAL ROUTE 2 TIMES PER DAY active Not Available Not Available No t Available amoxicillin 500 mg tablet Take 1 tablet twice a day by oral route for 10 days. 09/02 completed Not Available Not Available Not Available lamotrigine 25 mg tablet 12/06 completed Not Available Not Available Not Available dextroamphe tamine-amph etamine 30 mg tablet TAKE 1 TABLET BY MOUTH TWICE A DAY *ADMINIST ER DOSES AT LEAST 4-6 HOURS APART* active Not Available Not Available No t Available meloxicam 7.5 mg tablet TK 1 T PO BID 12/06 completed Not Available Not Available Not Available alprazolam 0.5 mg tablet 10/24 completed Not Available Not Available Not Available alprazolam 0.25 mg tablet TK 1 T PO BID PRN active Not Available Not Available No t Available famotidine 20 mg tablet TAKE 1 TABLET BY MOUTH TWICE DAILY active Not Available Not Available No t Available amitriptyli ne 25 mg tablet 12/06 completed Not Available Not Available Not Available temazepam 15 mg capsule 12/08 completed Not Available Not Available Not Available tamsulosin 0.4 mg capsule TAKE 1 CAPSULE BY MOUTH EVERY DAY active Not Available Not Available No t Available dicyclomine 20 mg tablet active Not Available Not Available Not Available betamethaso ne valerate 0.1 % topical cream APPLY 1 APPLICATI ON ONTO THE RIGHT EAR TWICE DAILY X3 WEEKS THEN REST FOR 1 WEEK. REPEAT IF NEEDED active Not Available Not Available No t Available amlodipine 10 mg tablet TAKE 1 TABLET BY MOUTH EVERY DAY active Not Available Not Available No t Available lithium carbonate 300 mg capsule 10/24 completed Not Available Not Available Not Available benzonatate 100 mg capsule 10/24 completed Not Available Not Available Not Available desloratadi ne 5 mg tablet Take 1 tablet every day by oral route. 12/06 completed Not Available Not Available Not Available doxycycline monohydrate 100 mg capsule 12/06 completed Not Available Not Available Not Available Bleph-10 10 % eye drops 10/24 completed Not Available Not Available Not Available hydrocodone 7.5 mg-acetamin ophen 325 mg tablet 12/06 completed Not Available Not Available Not Available cephalexin 500 mg capsule 08/07 completed Not Available Not Available Not Available pantoprazol e 40 mg tablet,leslie yed release 12/19 completed Not Available Not Available Not Available cyanocobala min (vit B-12) 1,000 mcg/mL injection solution INJECT 1 ML 1 VIAL IM Q 2 WEEKS 06/29 completed Not Available Not Available Not Available oseltamivir 75 mg capsule TK 1 C PO BID FOR 5 DAYS 12/06 completed Not Available Not Available Not Available triamcinolo ne acetonide 0.1 % topical ointment APPLY TOPICALLY TO AFFECTED AREA(S) 3 TIMES A DAY active Not Available Not Available No t Available buspirone 10 mg tablet 04/27 completed Not Available Not Available Not Available dextroamphe tamine-amph etamine 20 mg tablet TAKE 1 TABLET BY MOUTH TWICE A DAY 05/05 completed Not Available Not Available Not Available lisinopril 10 mg tablet Take 1 tablet every day by oral route for 30 days. 06/29 completed Not Available Not Available Not Available hyoscyamine 0.125 mg sublingual tablet 10/24 completed Not Available Not Available Not Available polymyxin B sulfate 10,000 unit-trimet hoprim 1 mg/mL eye drops 01/03 completed Not Available Not Available Not Available Qvar 40 mcg/actuati on Metered Aerosol oral inhaler INL 2 PFS PO BID active Not Available Not Available No t Available guanfacine 1 mg tablet 10/04 completed Not Available Not Available Not Available orphenadrin e citrate ER 100 mg tablet,exte nded release 10/24 completed Not Available Not Available Not Available Combivent 18 mcg-103 mcg/actuati on aerosol inhaler active Not Available Not Available Not Available BD Luer-Mak Syringe 3 mL 25 gauge x 1 USE DIRECTED FOR TESTOSTER ONE INJECTION S. active Not Available Not Available No t Available gabapentin 300 mg capsule TK 1 C PO BID 12/06 completed Not Available Not Available Not Available buspirone 7.5 mg tablet 10/24 completed Not Available Not Available Not Available omeprazole 20 mg capsule,del ayed release TAKE 1 CAPSULE BY MOUTH TWICE DAILY 05/05 completed Not Available Not Available Not Available diclofenac sodium 75 mg tablet,leslie yed release 12/06 completed Not Available Not Available Not Available dextroamphe tamine-amph etamine ER 10 mg 24hr capsule,ext end release active Not Available Not Available Not Available montelukast 10 mg tablet TAKE 1 TABLET BY MOUTH EVERY DAY 12/06 completed Not Available Not Available Not Available clomipramin e 50 mg capsule 10/24 completed Not Available Not Available Not Available diazepam 10 mg tablet Take 1 tablet(s) one hour before the procedure . 12/29 completed Not Available Not Available Not Available Nasonex 50 mcg/actuati on [place] active Not Available Not Available Not Available testosteron e cypionate 200 mg/mL intramuscul ar oil INJECT 1.5 ML INTO THE MUSCLE EVERY 2 WEEKS *DISCARD VIAL AFTER SINGLE USE* active Not Available Not Available No t Available ibuprofen 600 mg tablet 07/05 completed Not Available Not Available Not Available polyethylen e glycol 3350 17 gram/dose oral powder active Not Available Not Available Not Available methylpredn isolone 4 mg tablets in a dose pack FPD active Not Available Not Available Not Available albuterol sulfate HFA 90 mcg/actuati on aerosol inhaler 2 PUFF INHALED EVERY 4 - 6 HOURS NEEDED FOR SHORTNESS OF BREATH OR WHEEZING FOR 30 DAYS active Not Available Not Available No t Available Percocet 5 mg-325 mg tablet Take 1 tablet every 4-6 hours by oral route as needed for pain. 10/05 completed Not Available Not Available Not Available ondansetron 4 mg disintegrat ing tablet 06/29 completed Not Available Not Available Not Available cefdinir 300 mg capsule 10/24 completed Not Available Not Available Not Available losartan 100 mg tablet TAKE 1 TABLET BY MOUTH EVERY DAY active Not Available Not Available No t Available fluticasone propionate 50 mcg/actuati on nasal spray,suspe nsion SPRAY 1 SPRAY INTO EACH NOSTRIL ONCE DAILY active Not Available Not Available No t Available colestipol 1 gram tablet 10/05 completed Not Available Not Available Not Available dicyclomine 10 mg capsule 12/06 completed Not Available Not Available Not Available lamotrigine 100 mg tablet 12/06 completed Not Available Not Available Not Available finasteride 5 mg tablet TK 1 T PO QD 09/04 completed Not Available Not Available Not Available naproxen 500 mg tablet TK 1 T PO BID PRN active Not Available Not Available No t Available amoxicillin 875 mg-potassiu m clavulanate 125 mg tablet TK 1 T PO Q 12 H FOR 10 DAYS 09/02 completed Not Available Not Available Not Available hydroxyzine pamoate 25 mg capsule TAKE 1 CAPSULE BY MOUTH THREE TIMES DAILY NEEDED active Not Available Not Available No t Available Amphetamine Salt Combo 20 mg tablet 01/03 completed Not Available Not Available Not Available olmesartan 40 mg tablet 1 tab po qd 05/30 completed Not Available Not Available Not Available azithromyci n 500 mg tablet 10/24 completed Not Available Not Available Not Available escitalopra m 20 mg tablet TAKE 1 TABLET BY MOUTH EVERY DAY 10/04 completed Not Available Not Available Not Available ezetimibe 10 mg tablet TAKE 1 TABLET BY MOUTH EVERY DAY active Not Available Not Available No t Available aripiprazol e 10 mg tablet TK 1 T PO D 04/28 completed Not Available Not Available Not Available cyclobenzap rine 5 mg tablet 08/07 completed Not Available Not Available Not Available Abilify 5 mg tablet TK 1 T PO QD 10/24 completed Not Available Not Available Not Available Flovent HFA 110 mcg/actuati on aerosol inhaler active Not Available Not Available Not Available Flovent HFA 220 mcg/actuati on aerosol inhaler INHALE 2PUFFS BY MOUTH TWICE DAILY active Not Available Not Available No t Available tizanidine 4 mg capsule Take 1 capsule every day by oral route at bedtime. 04/28 completed Not Available Not Available Not Available Asmanex Twisthaler 220 mcg/actuati on(60 doses) breath activated inhalr 05/05 completed Not Available Not Available Not Available Lyrica 50 mg capsule 04/27 completed Not Available Not Available Not Available BD Integra Syringe 3 mL 25 gauge x 1 USE DIRECTED. 04/25 completed Not Available Not Available Not Available quetiapine 50 mg tablet 08/07 completed Not Available Not Available Not Available Bystolic 10 mg tablet TAKE 1 TABLET BY MOUTH EVERY DAY 04/27 completed Not Available Not Available Not Available cholecalcif joleen (vitamin D3) 50 mcg (2,000 unit) capsule TAKE 1 CAPSULE BY MOUTH EVERY DAY active Not Available Not Available No t Available Creon 24,000-76,0 00-120,000 unit capsule,del ayed release active Not Available Not Available Not Available Xifaxan 550 mg tablet TK 1 T PO BID 06/29 completed Not Available Not Available Not Available Butrans 5 mcg/hour transdermal patch 06/29 completed Not Available Not Available Not Available Combivent Respimat 20 mcg-100 mcg/actuati on solution for inhalation 12/06 completed Not Available Not Available Not Available Viberzi 100 mg tablet TK 1 T PO BID 10/04 completed Not Available Not Available Not Available Vraylar 1.5 mg capsule 10/04 completed Not Available Not Available Not Available Vraylar 4.5 mg capsule TAKE 1 CAPSULE BY MOUTH EVERY DAY active Not Available Not Available No t Available Vraylar 3 mg capsule TAKE 1 CAPSULE BY MOUTH EVERY DAY 2024 active Not Available Not Available Not Avai lable Fluvirin 45 mcg (15 mcg x 3)/0.5 mL intramuscul ar suspension ADM 0.5ML IM UTD active Not Available Not Available No t Available Fluarix Quad (PF) 60 mcg (15 mcg x 4)/0.5 mL IM syringe ADM 0.5ML IM UTD active Not Available Not Available No t Available Afluria Qd (36 mos up)(PF)60 mcg (15 mcg x4)/0.5 mL IM syringe ADM 0.5ML IM UTD 08/09 completed Not Available Not Available Not Available Vitals Date Recorded Body height Body mass index (BMI) Body weight Body temperature Heart rate Oxygen saturation Oxygen saturation in Arterial blood by Pulse oximetry Systolic blood pressure Diastolic blood pressure Provider Name and Address Organization Details Last Updated DateTime 3 170.18 cm 33.5 kg/m2 65408.7 7 g 100 [degF] 85 /min 98 % 98 % 138 mm[Hg] 90 mm[Hg] Sherri Oliver RN [facility] [employer] 3 10:43:16 Date Recorded Body height Body mass index (BMI) Body weight Provider Name and Address Organization Details Last Updated DateTime 06/03/2023 170.18 cm 32.9 kg/m2 91831.4 g Waleska Tsai [facility] [employer] 06/03/2023 09:41:23 Date Recorded Body height Provider Name an d Address Organization Details Last Updated DateTime 01/19/2024 170.18 cm Rg Benson RN [facility] [employer] 01/19/2024 16:54:30 Date Recorded Body height Body mass index (BMI) Body weight Body temperature Heart rate Oxygen saturation Oxygen saturation in Arterial blood by Pulse oximetry Systolic blood pressure Diastolic blood pressure Provider Name and Address Organization Details Last Updated DateTime 4 170.18 cm 29.6 kg/m2 08482.9 6 g 98.4 [degF] 95 /min 98 % 98 % 134 mm[Hg] 88 mm[Hg] Gisela Burns RN [facility] [employer] 4 15:21:17 Social History Question Answer Notes LastModified by Organization Details LastModified Time Tobacco Smoking Status Former Smoker KANWAL Menendez [facility] [employer] 06/03/2023 09:39:59 Do You Have An Advance Directive? No [id number] Information not available 09/29/2022 What Is Your Level Of Alcohol Consumption? Occasional [id number] Information not available 09/29/2022 Do You Wear A Helmet When Biking? No Information not available 06/03/2023 What Is Your Level Of Caffeine Consumption? Moderate [id number] Information not available 09/29/2022 In The 14 Days Before Symptom Onset, Have You Had Close Contact With A Laboratory-confi rmed COVID-19 While That Case Was Ill? No Information not available 06/03/2023 In The 14 Days Before Symptom Onset, Have You Had Close Contact With A Person Who Is Under Investigation For COVID-19 While That Person Was Ill? No [email or web address] Information not available 06/03/2023 What Type Of Diet Are You Following? REGULAR [id number] Information not available 09/29/2022 What Is The Highest Grade Or Level Of School You Have Completed Or The Highest Degree You Have Received? 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 Yes Mom Passed [email or web address] Information not available 06/03/2023 What Is The Fluoride Status Of Your Home? Unknown [email or web address] Information not available 06/03/2023 When Did You Quit Smoking? 11-15yearssincelast cigarette [email or web address] Information not available 06/03/2023 Are There Any Guns Present In Your Home? No Information not available 06/03/2023 Do You Use Insect Repellent Routinely? Yes Information not available 06/03/2023 Where Do You Live? SingleLevelHouse [email or web address] Information not available 06/03/2023 Do You Have A Medical Power Of Mud Trucker? No [email or web address] Information not available 06/03/2023 Do You Have Any Pets? Yes [email or web address] Information not available 06/03/2023 What Is Your Relationship Status? [id number] Information not available 09/29/2022 Do You Use Your Seat Belt Or Car Seat Routinely? Yes [email or web address] Information not available 06/03/2023 Do You Have Smoke And Carbon Monoxide Detectors In Your Home? Yes [email or web address] Information not available 06/03/2023 At What Age Did You Start Smoking Tobacco? 13 [email or web address] Information not available 06/03/2023 Are You Passively Exposed To Smoke? No [email or web address] Information not available 06/03/2023 Are There Any Smokers In Your House? No [email or web address] Information not available 06/03/2023 Do You Participate In Social Media? Yes [email or web address] Information not available 06/03/2023 Do You Feel Stressed (tense, Restless, Nervous, Or Anxious, Or Unable To Sleep At Night)? [id number] Information not available 06/03/2023 Do You Use Any Illicit Or Recreational Drugs? No [email or web address] Information not available 06/03/2023 Do You Use Sunscreen Routinely? Yes Information not available 06/03/2023 How Many Years Have You Smoked Tobacco? 15 [email or web address] Information not available 06/03/2023 Have You Recently Traveled Abroad? No [email or web address] Information not available 06/03/2023 Are You Currently In School? No [email or web address] Information not available 06/03/2023 Do You Have Any Dietary Restrictions? No [email or web address] Information not available 06/03/2023 Do You Or Have You Ever Used Any Other Forms Of Tobacco Or Nicotine? No [email or web address] Information not available 06/03/2023 Sex: Unknown Functional Status Question Answer Note LastModified by Organizat ion Details LastModified Time What is your exercise level? Heavy [id number] Information not available 09/29/2022 Mental Status None recorded. Family History Nothing Reported. Medical History No medical history recorded. Immunizations Vaccine Type Date Status Note Provider Nam e and Address Organization Details Recorded Time Influenza, split virus, quadrivalent, PF 04/21/2022 completed Not Available [facility] 19:53:09 Influenza, split virus, quadrivalent, PF 05/05/2015 completed Not Available [facility] 3 19:53:09 Past Encounters Encounter ID Performer Location Encounter Start Date Encounter Closed Date Diagnosis/Indication Diagnosis SNOMED-CT Code Diagnosis ICD10 Code Diagnosis Note [id number] [facility] [place] [address] [place] [address] 10/22/2020 00:00:00 10/22/2020 13:18:15 [id number] [facility] [place] [address] [place] [address] 02/27/2021 00:00:00 02/27/2021 08:37:54 [id number] [facility] [place] [address] [place] [address] 05/29/2021 00:00:00 05/29/2021 08:29:54 [id number] [facility] [place] [address] [place] [address] 08/07/2021 00:00:00 08/07/2021 16:46:57 [id number] [facility] [place] [address] [place] [address] 11/11/2021 00:00:00 11/11/2021 20:20:43 [id number] [facility] [place] [address] [place] [address] 04/02/2022 00:00:00 04/02/2022 17:15:33 [id number] [facility] [place] [address] [place] [address] 04/21/2022 00:00:00 04/21/2022 13:06:10 [id number] MARSHA Newton [facility] [place] [address] [place] [address] 11/05/2022 15:55:09 11/05/2022 16:33:55 Seasonal allergy 917500514 J30.2 ChronicNot well controlled off medication Resume cetirizine 10mg daily. For persistent sx, may need to consider the addition of Fluticason e and/or Montelukas t. Seasonal allergies can be mild with symptoms that do not affect our quality of life however they can be severe affecting quality of life and daily activities ..... medication s that help control the symptoms include intranasal and oral formulatio ns of antihistam rosa maria, decongesta nts, and cortical steroids, and intranasal cromolyn, intranasal anticholin ergics and oral leukotrien e receptor antagonist s..... medication s well known to the public and go by the names of Flonase, Zyrtec, Sudafed, prednisone , and Singulair. Allergic rhinitis is an inflammato ry process of the nasal mucosa triggered by environmen bud allergens. ... symptoms of allergic rhinitis can be intermitte nt mild persistent and moderate to severe treatment will depend on what category the patient and his symptoms fall into. Attention deficit hyperactivity disorder, predominantly inattentive type 88336302 F90.0 ChronicCur rently stable with stimulant medication . - Educated patient about disorder.- Discussed basic behavior therapy such as: maintainin g daily schedule, keeping distractio ns to a minimum, setting small and reachable goals.- Patient's BP's are < 90th%ile for age and height. Patient's weight is stable and is currently eating and sleeping well. Therefore, will stimulant medication today. Discussed possible side effects with patient.- F/u in for reassessme nt to titrate or change medication as needed; sooner if patient is having adverse effects or any other new or concerning symptoms. Medication monitoring 39 7778206 Z51.81 Stable with current dose of dextroamph etamine-am phetamine (Adderall) Pt denies any lending, selling, or borrowing of medication s. Denies any cp, sob, palpitatio ns, or unusual weight loss.Revie wed controlled substance agreement requiremen ts. Refill given.[place] PDMP checked and appropriat eDue for UDS. Pt agrees to come into office next week to complete.R TO 3 months for routine f/u appt. [id number] MARSHA Newton [facility] Primary [facility] [address] [place] [address] 11/10/2022 10:04:10 11/10/2022 10:34:24 [id number] MARSHA Newton [facility] Primary Care [facility] [address] [facility] [address] [place] [address] 01/27/2023 10:38:36 01/27/2023 12:51:49 Testicular hypofunction 773733108 E29.1 Chronic, current status unknownWil l check T2 level Lesion of external ear 037548814 H61.899 New problemLes ion to upper portion of right auricleWil l refer to derm for further evaluation /tx to evaluate for possible malignancy . 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 Will check labs to evaluate for low T and anemias. Attention deficit hyperactivity disorder, predominantly inattentive type 59389167 F90.0 ChronicCur rently stable with stimulant medication . - Educated patient about disorder.- Discussed basic behavior therapy such as: maintainin g daily schedule, keeping distractio ns to a minimum, setting small and reachable goals.- Patient's BP's are < 90th%ile for age and height. Patient's weight is stable and is currently eating and sleeping well. Therefore, will stimulant medication today. Discussed possible side effects with patient.- F/u in 3 months for reassessme nt to titrate or change medication as needed; sooner if patient is having adverse effects or any other new or concerning symptoms. Medication monitoring 39 8840998 Z51.81 Stable with current dose of dextroamph etamine-am phetamine (Adderall) Pt denies any lending, selling, or borrowing of medication s. Denies any cp, sob, palpitatio ns, or unusual weight loss.Revie wed controlled substance agreement requiremen ts. Refill given.[place] checked 11/05/22 and appropriat eUDS appropriat e (10/2022).R TO 3 months for routine f/u appt. [id number] Michelle Toby [facility] Primary Care [facility] [address] [facility] [address] [place] [address] 06/03/2023 09:39:39 06/03/2023 10:12:04 Lesion of external ear 439086821 H61.899 -pt did f/u with derm for the lesion-was given a new ointment-h e notes that it seems to be improving- exam limited to phone visit Attention deficit hyperactivity disorder, predominantly inattentive type 17910382 F90.0 -Chronic-C urrently stable with stimulant medication .-He has been out of med d/t not having an appt-Pt denies lending, selling, trading medication s-refill dextroamph etamine-am phetamine given Medication monitoring 39 2097689 Z51.81 Stable with current dose of dextroamph etamine-am phetamine (Adderall) Pt denies any lending, selling, or borrowing of medication s. Denies any cp, sob, palpitatio ns, or unusual weight loss.Revie wed controlled substance agreement requiremen ts. Refill given.[place] checked 06/03/23 and appropriat eUDS due with next visit (09/2023).R TO 3 months for routine f/u appt. Vitamin D deficiency 347 15361 E55.9 -still noting some fatigue and malaise-pt does not take vitamin D currently- he is agreeable to start daily supplement , med sent-ben bhatia on getting 30 mins of direct sunlight/d ay [id number] ALICJA Lr [facility] Care [address] [place] [address] 01/19/2024 16:52:58 01/19/2024 16:59:19 [id number] ALICJA Lr [facility] Care [address] [place] [address] 05/30/2024 15:13:26 05/30/2024 15:34:26 Attention deficit hyperactivity disorder, predominantly inattentive type 50542835 F90.0 chronic stable with use of meds Long-term drug therapy 276517547 Z79.899 Pt denies any lending, selling, or borrowing of medication s. Denies any cp, sob, palpitatio ns, or unusual weight loss.Revie wed controlled substance agreement requiremen ts. Refill given.[place] today. Essential hypertension 86370195 I10 Health Concerns Section Related Observation LastModified by Organization Detai ls LastModified Time None Recorded Concern Status LastModified by Organization Details LastModified Time None Recorded Advance Directives Directive N: Payers Encounter Date Sequence Insurance Name Policy Number Policy Mcnulty Covered Member ID Mcnulty Member ID Guarantor Name 11/10/2022 1 [facility] [id number] Lionel A Fietsam [id number] Lionel A Fietsam 11/10/2022 2 [place] [facility] PUBLIC AID Lionel A Fietsam [id number] Lionel A Fietsam 01/27/2023 1 [facility] [id number] Lionel A Fietsam [id number] Lionel A Fietsam 01/27/2023 2 [place] [facility] Lionel A Fietsam [id number] Lionel A Fietsam 06/03/2023 1 [facility] [id number] Lionel A Fietsam [id number] Lionel A Fietsam 06/03/2023 2 [place] [facility] Lionel A Fietsam [id number] Lionel A Fietsam 01/19/2024 1 [facility] [id number] Lionel A Fietsam [id number] Lionel A Fietsam 01/19/2024 2 [place] [facility] PUBLIC AID Lionel A Fietsam [id number] Lionel A Fietsam 05/30/2024 1 [facility] [id number] Lionel A Fietsam [id number] Lionel A Fietsam 05/30/2024 2 [place] [facility] A[facility] Lionel A Fietsam [id number] Lionel A Fietsam Notes Date Note Type Note Provider Name and Address Organization Details Recorded Time 01/27/2023 text/html 1. Pt in office with for problem visit. Pt states he has a sore on the top of his right ear that won't heal. states it's been there for at least a month. Pt states it scabs over, then peels off, but never fully heals. Pt states it almost feels like he has a new piercing in the area when he tries to lay on it.2. Pt states he is due for refill of Adderall. Pt denies any problems or concerns with meds. Pt states he/she takes only as directed. Denies any lending, selling, or borrowing of medication.3. Pt requests testosterone testing. Pt states he isn't sure if he is low/high. states he is always c/o being tired, except when it comes to sex. States he wants it all the time. MARSHA Newton [address], [place], [address], [place] 01/27/2023 13:31:47 06/03/2023 text/html Pt is a phone visit for med f/u Michelle duncan, [place] 09/21/2023 10:57:31 05/30/2024 text/html pt is here for f/u ALICJA Vargas [address], [facility] [address], [place], [address], [place] 05/30/2024 15:35:29
[2024-11-21 04:52] VITALS: BP 146/68; PULSE 85; RESP 15; TEMP 36.3; O2SAT 99
--- OUTSIDE RECORDS SUMMARY | 2024-11-21 04:52 | XMS_ITS | Clinical Summary ---
Author Organization [facility] Address [address] [address] Phone Care Team Providers Care Dump Grader Name Role Phone Yuri Gloria MD Primary Care Provider [phone] Monica Sood APRN, MANAGER STATISTICAL Unavailable [phone] Allergies Active Allergy Reactions Criticality Noted Date Comments Tramadol Rash 04/27/2016 Medications amphetamine-dext roamphetamine (ADDERALL XR) 10 MG CAPSULE SR 24 HR 0 08/18/2015 Active QVAR 40 MCG/ACT Aerosol Solution 3 05/29/2015 Ac tive cyanocobalamin (VITAMIN B-12) 1000 MCG/ML Solution 5 08/17/2015 Active escitalopram (LEXAPRO) 20 MG Tablet 1 08/18/2015 Active HYDROcodone-acet aminophen (NORCO) 5-325 MG Tablet 08/04/2015 Active BYSTOLIC 10 MG Tablet 08/28/2015 Active amitriptyline (ELAVIL) 25 MG Tablet Take 1 Tab by mouth nightly. 90 Tab 0 04/27/2016 Active ondansetron (ZOFRAN ODT) 4 MG TABLET DISPERSIBLE Take 1 Tab by mouth every 8 hours as needed for Nausea. 10 Tab 0 04/27/2016 Active VIBERZI 100 MG Tablet TAKE 1 TABLET BY MOUTH TWICE DAILY 60 Tab 3 08/31/2016 Active dicyclomine (BENTYL) 20 MG Tablet Take 1 Tab by mouth 3 times daily as needed. 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 Not on file Not on file Not on file Last Filed Vital Signs Vital Sign Reading Time Taken Comments Blood Pressure 130/100 04/27/2016 1:51 PM CDT Pulse 68 04/27/2016 1:51 PM CDT Temperature 36.5 C (97.7 F) 04/27/2016 1:51 PM CDT Respiratory Rate 16 04/27/2016 1:51 PM CDT Oxygen Saturation 96% 04/27/2016 1:51 PM CDT Inhaled Oxygen Concentration - - Weight 92.5 kg (204 lb) 04/27/2016 1:51 PM CDT Height 170.2 cm (5' 7 ) 04/27/2016 1:51 PM CDT Body Mass Index 31.95 04/27/2016 1:51 PM CDT Plan of Treatment Health Maintenance Due Date Last Done Comments Hepatitis C Virus (HCV) Screening 1980 TdaP Immunization 1980 Hepatitis B Immunization (1 of 3 - 19+ 3-dose series) 1999 Influenza Immunization (#1) 2024 SARS-COV-2 Immunization ( - season) 2024 Respiratory Syncytial Virus (RSV) Immunization (Adult) (1 - 1-dose 75+ series) 2055 Meningococcal Immunization (ACWY) Aged Out No longer eligible based on patient's age to complete this topic Pneumococcal Immunization Combined Aged Out No longer eligible based on patient's age to complete this topic Rotavirus Immunization Aged Out No lo nger eligible based on patient's age to complete this topic Care Teams Dump Grader Relationship Specialty Start Date End Date Yuri Gloria MD PCP - General Internal Medicine 08/11/15 Monica Sood, PULL OUT OPERATOR, MANAGER STATISTICAL Nurse Practitioner Advanced Practice Nurse 9/27/16
--- OUTSIDE RECORDS SUMMARY | 2024-11-21 04:52 | XMS_ITS | CONTINUITY OF CARE DOCUMENT ---
Author Name narcisa brewster Address Unknown Organization [facility] Address [address] [place] [address] Phone [phone] Care Team Providers Care Powerhouse Mechanic Helper Name Role Phone Stephen Muñoz MD Unavailable HUMBERTO FAULKNER MD Unavailable HUMBERTO FAULKNER MD Unavailable [phone] PROBLEMS Condition Status Date Provider Notes Chest pain-type to be determined active Tamica Muñoz MD Arm pain active Stephen Muñoz MD Shortness of breath on exertion active Kaitlin Muñoz MD Near syncope active Stephen Muñoz MD ENCOUNTERS Date Type Provider Location Encounter Diag nosis - In-person encounter Office Visit Stephen Muñoz MD [facility] Office - In-person encounter Office Visit Stephen Muñoz MD [facility] Chest pain-type to be determinedArm painShortness of breath on exertionNear syncope VITAL SIGNS Date Observation Value Provider blood pressure, diastolic 90 mm[Hg] Ricki Mckenzie blood pressure, systolic 122 mm[Hg] Linda Mckenzie pulse rate 79 /min Cami Mckenzie oxygen saturation, oximetry 98 % Cami Mckenzie respiratory rate E&M 18 /min Cami Mckenzie Body Mass Index (Ratio) 32.73 kg/m2 Theron Mckenzie weight E&M 209 [lb_av] Cami Mckenzie blood pressure, diastolic 95 mm[Hg] Me yajaira Thompson blood pressure, systolic 153 mm[Hg] Mague Thompson blood pressure, diastolic 83 mm[Hg] Me yajaira Thompson blood pressure, systolic 142 mm[Hg] Mague Thompson pulse rate 68 /min Meggan Thompson oxygen saturation, oximetry 98 % Meggan Thompson respiratory rate E&M 15 /min Meggan Thompson Body Mass Index (Ratio) 32.42 kg/m2 Aileen Thompson weight E&M 207 [lb_av] Meggan Thompson height E&M 67 [in_i] Meggan Thompson ALLERGIES Allergy Name Onset Date Reaction Criticality Status TRAMADOL High Criticality active HISTORY OF MEDICATION USE Medication Status Instructions Dates Provider Indications Com ments TESTOSTERONE CYPIONATE 100 MG/ML INTRAMUSCULAR SOLUTION active once every 2 weeks 9 Meggan Donna CYANOCOBALAMIN 1000 MCG/ML INJECTION SOLUTION active once every 2 weeks 9 Meggan Venegasann AMITRIPTYLINE HCL 25 MG ORAL TABLET active once daily 9 Meggan Donna XIFAXAN 550 MG ORAL TABLET active twice daily 9 Meggan Donna ZOFRAN 4 MG ORAL TABLET active as needed 9 Meggan Donna VIBERZI 100 MG ORAL TABLET active twice daily 9 Meggan Donna LISINOPRIL 20 MG ORAL TABLET active ONE TAB. DAILY 9 Stephen Muñoz MD QVAR AEROSOL SOLUTION active twice daily 9 Meggan Thompson PROAIR HFA 108 (90 Base) MCG/ACT INHALATION AEROSOL SOLUTION active 2 puffs every 4-6 hours as needed 9 Megganza Thompson BYSTOLIC 5 MG ORAL TABLET active ONE TAB. DAILY 9 Meggan Donna LEXAPRO 10 MG ORAL TABLET active once daily 9 Meggan Thompson SOCIAL HISTORY Date Observation Value Provider social history E&M quit 11 years P atient is a former smoker. Smoking History: Jennifer rincon is a former smoker. Stephen Muñoz MD smoking status Former smoker Stephen Muñoz MD social history reviewed E&M reviewed - no changes required Stephen Muñoz MD number of grandchildren Stephen Muñoz MD K naveen Mckenzie smoking status Former smoker Meggan Marija torres alcohol use no Stephen Muñoz MD social history reviewed E&M reviewed - no changes required Stephen Muñoz MD social history E&M quit 11 years Stephen armas MD cigarette use yes Meggan Donna smoking status Former smoker Meggan Marija nn FUNCTIONAL STATUS Date Observation Value Provider periodic limb movement index absent (0) Meggan Donna FAMILY HISTORY Family Member Condition Mother Negative FH of Coron raquel Artery Disease INSURANCE PROVIDERS Payer name Policy type / Coverage type Reliance red green party ID [facility] [id number] TREATMENT PLAN Date Name Performer Cardiology: He has n ot fel like he is going to pass out again. His stress test was normal and he exercised for 11 min. Also his echo showed normal heart function and valve function. He still gets the occasional tightness in his chest. In the future if he has more episodes of presyncope we will put an event monitor. Stephen Muñoz MD Cardiology Stephen Muñoz MD Cardiology:will check a routine stress and an echo Stephen Muñoz MD Date Name DLCO - 29209 FRC - 32956 FVC - 85335 Carotid Duplex Bilat eral STR - Routine Complete Echo HISTORY OF PROCEDURES Procedure Date Procedure Name Provider Procedure Notes S tatus SNOMED-CT: 01702622 Physical Exam, Performed: Pulse Exam of Foot Stephen Muñoz MD completed SNOMED-CT: 911502771 468061 Current Medications Documented Stephen Muñoz MD completed Stress EKG Stephen Muñoz MD completed SNOMED-CT: 699364213 998594 Current Medications Documented Stephen Muñoz MD completed SNOMED-CT: 91185702 Physical Exam, Performed: Pulse Exam of Foot Stephen Muñoz MD completed
--- OUTSIDE RECORDS SUMMARY | 2024-11-21 04:52 | XMS_ITS | Clinical Summary ---
Author Organization [facility] Address [address] [place] [address] Care Team Providers Care Ordnance Technician Name Role Phone Kenroy Helms MD Primary Care Provider Source Comments [facility],non-owned Affiliates and Associated Physician Practices is amultiple site organization consisting of ambulatory clinics and hospital sitesin [place], [place], [place] and [place]. This disclosure is being madepursuant to the Care Everywhere program and may not contain all information available regarding this patient. Last updated 18.[facility] Allergies Active Allergy Reactions Criticality Noted Date Comments Tramadol Urticaria Medium 09/03/2016 Medications * Be aware that medications may not be up to date on this document. Alwaysverify current medications with the patient. omeprazole (PRILOSEC) 20 MG capsule Take 20 mg by mouth daily before breakfast Active Fluticasone Propionate HFA (FLOVENT HFA IN) Active ALBUTEROL SULFATE HFA IN Activ e lisinopril (PRINIVIL; ZESTRIL) 20 MG tablet Take 20 mg by mouth once daily Active nebivolol (BYSTOLIC) 10 MG tablet Take 10 mg by mouth once daily Active montelukast (SINGULAIR) 10 MG tablet Take 10 mg by mouth at bedtime Active fluticasone propionate (FLONASE) 50 MCG/ACT nasal spray Embarrass 1 Embarrass into each nostril 2 times daily 1 Bottle 1 7 Active cyclobenzaprine (FLEXERIL) 5 MG tablet Take 1 tablet by mouth nightly as needed (Muscle spasms) 10 tablet 0 Active ibuprofen (MOTRIN) 600 MG tablet Take 1 tablet by mouth every 6 hours as needed for Pain 30 tablet 0 Active Active Problems No known active problems Social History Tobacco Use Types Packs/Day Years Used Date Smoking Tobacco: Never Smokeless Tobacco: Never Alcohol Use Standard Drinks/Week Comments Yes 0 (1 standard drink = 0.6 oz pur e alcohol) occasional Sex and Gender Information Value Date Recorded Sex Assigned at Not on file 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 Gender Identity Not on file Sexual Orientation Not on file Last Filed Vital Signs Vital Sign Reading Time Taken Comments Blood Pressure 142/72 04/30/2020 3:11 AM CDT Pulse 82 04/30/2020 3:11 AM CDT Temperature 36.8 C (98.2 F) 04/30/2020 12:39 AM CDT Respiratory Rate 16 04/30/2020 3:11 AM CDT Oxygen Saturation 100% 04/30/2020 3:11 AM CDT Inhaled Oxygen Concentration - - Weight 95.3 kg (210 lb) 04/30/2020 12:39 AM CDT Height 167.6 cm (5' 6 ) 04/30/2020 12:39 AM CDT Body Mass Index 33.89 04/30/2020 12:39 AM CDT Plan of Treatment Health Maintenance Due Date Last Done Comments LIPID TESTING 1980 HIV SCREENING 1995 HEPATITIS C SCREENING 09/11/1998 DTAP/TDAP/TD VACCINES (1 - Tdap) 1999 HEPATITIS B VACCINE (1 of 3 - 19+ 3-dose series) 1999 COVID-19 VACCINE ( - 2023-2 5 season) 2024 DEPRESSION SCREENING 08/01/2024 INFLUENZA VACCINE (Season Ended) 2025 ZOSTER VACCINE (1 of 2) 2030 HIB VACCINE Aged Out No longer eligi ble based on patient's age to complete this topic HPV VACCINE Aged Out No longer eligi ble based on patient's age to complete this topic MENINGOCOCCAL (Group B) VACC INE SHARED DECISION-MAKING Aged Out No longer eligibl e based on patient's age to complete this topic MENINGOCOCCAL GROUPS A/C/Y/W VACCINE Aged Out No longer eligible b ased on patient's age to complete this topic PNEUMOCOCCAL VACCINE Aged Out No long er eligible based on patient's age to complete this topic Insurance MEDICAID - OUT OF STATE PAYOR GENERIC Care Teams Ordnance Technician Relationship Specialty Start Date End Date Kenroy Helms MD [address] [place] [address] PCP - General Gastroenterology 09/03/16
[2024-11-21 05:12] LABS: Basophils Percent Auto 0.4 % (0.2-1.2); Eosinophils Absolute Auto 0.1 K/mm3 (0-0.3); Eosinophils Percent Auto 1.1 % (0-4.4); Hematocrit 43.6 % (42.0-52.0); Hemoglobin 14.5 g/dL (14.0-18.0); Immature Granulocyte Absolute 0.04 K/mm3 (0.00-0.031); Immature Granulocyte Percent A 0.5 % (0-0.5); Lymphocytes Absolute Auto 1.97 K/mm3 (0.9-3.2); Lymphocytes Percent Auto 26.2 % (18.3-44.2); Mean Corpuscular HGB Conc 33.3 g/dl (32-36); Mean Corpuscular Hemoglobin 31.5 pg (26-34); Mean Corpuscular Volume 94.8 fl (80-100); Mean Platelet Volume 9.3 fl (7.4-10.4); Monocytes Absolute Auto 0.5 K/mm3 (0.1-0.6); Monocytes Percent Auto 6.8 % (2.6-8.5); Neutrophils Absolute Auto 4.9 K/mm3 (1.3-6.7); Platelet Count Result 316 k/mm3 (150-375); Red Cell Distribution Width 12.7 % (11.5-14.5); White Blood Count 7.5 K/mm3 (4.5-10.0)
[2024-11-21] MEDS: SODIUM CHLORIDE 0.9% IV 1,000 ML 999 ML IV CONT (05:15)
[2024-11-21] MEDS: ONDANSETRON INJ 4 MG/2 ML VIAL IV PUSH (05:16)
[2024-11-21] MEDS: MORPHINE SULFATE (*CRX) 4 MG/ML INJ IV PUSH (05:16)
--- NOTE | 2024-11-21 05:17 | ED_ITS ---
HPI - General Adult General Chief complaint: Abdominal Pain <Ben Tirado MD - Last Filed: 11/21/24 05:30> Stated complaint: flank pain <Ben Tirado MD - Last Filed: 11/21/24 05:30> Time Seen by Provider: 11/21/24 05:00 <Ben Tirado MD - Last Filed: 11/21/24 05:30> History of Present Illness HPI narrative: patient is a 44-year-old gentleman who presents emergency department with chief complaint of flank pain. Patient reports he has had prior history of kidney stones in the past reports about a month ago he started having some discomfort worse on the right side the patient states last evening the pain got worse and reports has been rating down into his right lower quadrant. < Ben Tirado MD - Last Filed: 11/21/24 05:30> Related Data Allergies/adverse reactions: Allergies Allergy/AdvReac Type Severity Reaction Status Date / Time tramadol Allergy Intermediate Rash Verified 11/21/24 04:55 <Ben Tirado MD - Last Filed: 11/21/24 05:30> Review of Systems 2 Review of Systems: A 10 system review of systems was completed on the patient and is negative except for what is stated in the HPI. Nursing and ancillary documentation was reviewed. <Ben Tirado MD - Last Filed: 11/21/24 05:30> [facility] Past Medical History Medical History: Medical History Sleep disorder Bipolar disorder Low testosterone ADHD Hyperlipidemia Hypertension <Ben Tirado MD - Last Filed: 11/21/24 05:30> Social History Social History: Social History Smoking status: Former smoker Alcohol intake: current Alcohol use details: occasionally Substance use: never Substance use type: does not use Do You Feel Safe in your Home?: Yes Lack of Transportation: No Lack of Food: Never True Current Housing: Decline to Answer Concerned About Future Housing: Decline to Answer Difficulty Paying Gas/Electric Bills: Decline to Answer Difficulty Paying for Meds: Decline to Answer Currently Unemployed: Decline to Answer Education: Decline to Answer Difficulty w/ Childcare or Family Care: Decline to Answer <Ben Tirado MD - Last Filed: 11/21/24 05:30> Exam 2 Narrative: GENERAL: Well-appearing, well-nourished, and in no acute distress. HEAD: Normocephalic, atraumatic. EYES: PERRLA and EOMI. ENT: Nares clear, no rhinorrhea or epistaxis. Mucous membranes moist. NECK: Supple. CHEST: Clear to auscultation. No respiratory distress. HEART: Regular rate and rhythm. No murmur heard. Normal peripheral pulses. ABDOMEN: Soft, nontender, nondistended, normal active bowel sounds. EXTREMITIES: Normal range of motion. No edema. SKIN: Warm, dry, no rash. NEURO: No focal deficits. Alert and oriented x3. PSYCH: Normal mood and affect. <Ben Tirado MD - Last Filed: 11/21/24 05:30> Course Vital Signs Vital signs: Vital Signs Temperature 36.3 C L 11/21/24 04:52 Pulse Rate 85 11/21/24 04:52 Respiratory Rate 15 11/21/24 04:52 Blood Pressure 146/68 H 11/21/24 04:52 Pulse Oximetry 99 11/21/24 04:52 Oxygen Delivery Room Air 11/21/24 04:52 Temperature 36.6 C 11/21/24 05:54 Pulse Rate 64 11/21/24 07:45 Respiratory Rate 14 11/21/24 07:45 Blood Pressure 106/53 L 11/21/24 07:45 Pulse Oximetry 98 11/21/24 07:45 Oxygen Delivery Room Air 11/21/24 04:52 <Ben Tirado MD - Last Filed: 11/21/24 05:30> Vital Signs Temperature 36.3 C L 11/21/24 04:52 Pulse Rate 85 11/21/24 04:52 Respiratory Rate 15 11/21/24 04:52 Blood Pressure 146/68 H 11/21/24 04:52 Pulse Oximetry 99 11/21/24 04:52 Oxygen Delivery Room Air 11/21/24 04:52 Temperature 36.6 C 11/21/24 05:54 Pulse Rate 64 11/21/24 07:45 Respiratory Rate 14 11/21/24 07:45 Blood Pressure 106/53 L 11/21/24 07:45 Pulse Oximetry 98 11/21/24 07:45 Oxygen Delivery Room Air 11/21/24 04:52 <Rosa Pereira MD - Last Filed: 11/21/24 09:19> Medical Decision Making MDM Narrative Medical decision making narrative: Workup today showed no significant finding to explain patient condition Back muscular pain is my concern. Discharged on Tylenol, ibuprofen as needed. < Rosa Pereira MD - Last Filed: 11/21/24 09:19> Vital Signs Vital Signs: Vital Signs Temperature 36.3 C L 11/21/24 04:52 Pulse Rate 85 11/21/24 04:52 Respiratory Rate 15 11/21/24 04:52 Blood Pressure 146/68 H 11/21/24 04:52 Pulse Oximetry 99 11/21/24 04:52 Oxygen Delivery Room Air 11/21/24 04:52 Temperature 36.6 C 11/21/24 05:54 Pulse Rate 64 11/21/24 07:45 Respiratory Rate 14 11/21/24 07:45 Blood Pressure 106/53 L 11/21/24 07:45 Pulse Oximetry 98 11/21/24 07:45 Oxygen Delivery Room Air 11/21/24 04:52 <Ben Tirado MD - Last Filed: 11/21/24 05:30> Vital Signs Temperature 36.3 C L 11/21/24 04:52 Pulse Rate 85 11/21/24 04:52 Respiratory Rate 15 11/21/24 04:52 Blood Pressure 146/68 H 11/21/24 04:52 Pulse Oximetry 99 11/21/24 04:52 Oxygen Delivery Room Air 11/21/24 04:52 Temperature 36.6 C 11/21/24 05:54 Pulse Rate 64 11/21/24 07:45 Respiratory Rate 14 11/21/24 07:45 Blood Pressure 106/53 L 11/21/24 07:45 Pulse Oximetry 98 11/21/24 07:45 Oxygen Delivery Room Air 11/21/24 04:52 <Rosa Pereira MD - Last Filed: 11/21/24 09:19> Lab Data Result diagrams: 11/21/24 05:05 11/21/24 05:05 <Ben Tirado MD - Last Filed: 11/21/24 05:30> Labs: Lab Results 11/21/24 11/21/24 Range/Units 05:05 05:19 WBC 7.5 (4.5-10.0) K/mm3 RBC 4.60 (4.6-6.20) M/mm3 Hgb 14.5 (14.0-18.0) g/dL Hct 43.6 (42.0-52.0) % MCV 94.8 (80-100) fl MCH 31.5 (26-34) pg MCHC 33.3 (32-36) g/dl RDW 12.7 (11.5-14.5) % Plt Count 316 (150-375) k/mm3 MPV 9.3 (7.4-10.4) fl Immature Gran % (Auto) 0.5 (0-0.5) % Neut % (Auto) 65.0 (45.5-73.1) % Lymph % (Auto) 26.2 (18.3-44.2) % [place] % (Auto) 6.8 (2.6-8.5) % Eos % (Auto) 1.1 (0-4.4) % Baso % (Auto) 0.4 (0.2-1.2) % Lymph # (Auto) 1.97 (0.9-3.2) K/mm3 [place] # (Auto) 0.5 (0.1-0.6) K/mm3 Eos # (Auto) 0.1 (0-0.3) K/mm3 Baso # (Auto) 0.0 (0.0-0.1) K/mm3 Abs Immat Gran (auto) 0.04 H (0.00-0.031) K/mm3 Absolute Neuts (auto) 4.9 (1.3-6.7) K/mm3 Absolute Nucleated RBC 0.000 (0.0-0.012) K/mm3 Nucleated RBC % 0.0 (0.0-0.2) % Sodium 137 (137-145) mmol/L Potassium 3.8 (3.4-5.0) mmol/L Chloride 101 (98-107) mmol/L Carbon Dioxide 26 (22-30) mmol/L Anion Gap 10 (4-12) mmol/L BUN 15 (9-20) mg/dL Creatinine 0.84 (0.7-1.3) mg/dL Estim Creat Clear Calc 100 ml/min Estimated GFR > 60 (59 - ) Glucose 96 (65-110) mg/dL Calcium 9.4 (8.4-10.2) mg/dL Total Bilirubin 0.5 (0.2-1.3) mg/dL AST 33 (17-59) U/L ALT 33 (6-50) U/L Alkaline Phosphatase 68 (38-126) U/L Total Protein 8.0 (6.3-8.2) g/dL Albumin 4.7 (3.5-5.1) g/dL Lipase 89 (23-300) U/L Urine Color Yellow (Yellow) Urine Appearance Clear (Clear) Urine pH 6.0 (5.0-9.0) Ur Specific [place] 1.019 (1.001-1.035) Urine Protein Negative (Negative) mg/dL Urine Glucose (UA) Negative (Negative) mg/dL Urine Ketones Negative (Negative) mg/dL Ur Blood (Man) Negative (Negative) Urine Nitrate Negative (Negative) Urine Bilirubin Negative (Negative) Urine Urobilinogen 0.2 (<2.0) mg/dL Leukocyte Esterase Rfl Negative (Negative) ROCÍO/UL <Ben Tirado MD - Last Filed: 11/21/24 05:30> Lab Results 11/21/24 11/21/24 Range/Units 05:05 05:19 WBC 7.5 (4.5-10.0) K/mm3 RBC 4.60 (4.6-6.20) M/mm3 Hgb 14.5 (14.0-18.0) g/dL Hct 43.6 (42.0-52.0) % MCV 94.8 (80-100) fl MCH 31.5 (26-34) pg MCHC 33.3 (32-36) g/dl RDW 12.7 (11.5-14.5) % Plt Count 316 (150-375) k/mm3 MPV 9.3 (7.4-10.4) fl Immature Gran % (Auto) 0.5 (0-0.5) % Neut % (Auto) 65.0 (45.5-73.1) % Lymph % (Auto) 26.2 (18.3-44.2) % [place] % (Auto) 6.8 (2.6-8.5) % Eos % (Auto) 1.1 (0-4.4) % Baso % (Auto) 0.4 (0.2-1.2) % Lymph # (Auto) 1.97 (0.9-3.2) K/mm3 [place] # (Auto) 0.5 (0.1-0.6) K/mm3 Eos # (Auto) 0.1 (0-0.3) K/mm3 Baso # (Auto) 0.0 (0.0-0.1) K/mm3 Abs Immat Gran (auto) 0.04 H (0.00-0.031) K/mm3 Absolute Neuts (auto) 4.9 (1.3-6.7) K/mm3 Absolute Nucleated RBC 0.000 (0.0-0.012) K/mm3 Nucleated RBC % 0.0 (0.0-0.2) % Sodium 137 (137-145) mmol/L Potassium 3.8 (3.4-5.0) mmol/L Chloride 101 (98-107) mmol/L Carbon Dioxide 26 (22-30) mmol/L Anion Gap 10 (4-12) mmol/L BUN 15 (9-20) mg/dL Creatinine 0.84 (0.7-1.3) mg/dL Estim Creat Clear Calc 100 ml/min Estimated GFR > 60 (59 - ) Glucose 96 (65-110) mg/dL Calcium 9.4 (8.4-10.2) mg/dL Total Bilirubin 0.5 (0.2-1.3) mg/dL AST 33 (17-59) U/L ALT 33 (6-50) U/L Alkaline Phosphatase 68 (38-126) U/L Total Protein 8.0 (6.3-8.2) g/dL Albumin 4.7 (3.5-5.1) g/dL Lipase 89 (23-300) U/L Urine Color Yellow (Yellow) Urine Appearance Clear (Clear) Urine pH 6.0 (5.0-9.0) Ur Specific [place] 1.019 (1.001-1.035) Urine Protein Negative (Negative) mg/dL Urine Glucose (UA) Negative (Negative) mg/dL Urine Ketones Negative (Negative) mg/dL Ur Blood (Man) Negative (Negative) Urine Nitrate Negative (Negative) Urine Bilirubin Negative (Negative) Urine Urobilinogen 0.2 (<2.0) mg/dL Leukocyte Esterase Rfl Negative (Negative) ROCÍO/UL <Rosa Pereira MD - Last Filed: 11/21/24 09:19> Imaging Data Attestation: I personally reviewed and interpreted this imaging study as follows: < Rosa Pereira MD - Last Filed: 11/21/24 09:19> Radiologist's impression: Impressions Abdomen/Pelvis CT 11/21/24 06:15 Impression: Small bilateral nonobstructing renal stones. Scrotum Ultrasound 11/21/24 08:10 Impression: Unremarkable exam. No evidence of torsion or testicular mass. <Rosa Pereira MD - Last Filed: 11/21/24 09:19> Discharge Plan Discharge Clinical Impression: Back pain <Ben Tirado MD - Last Filed: 11/21/24 05:30> Patient Disposition: Home <Ben Tirado MD - Last Filed: 11/21/24 05:30> Condition: Stable <Ben Tirado MD - Last Filed: 11/21/24 05:30> Instructions: Back Pain (ED), Lower Back Exercises (ED) <Ben Tirado MD - Last Filed: 11/21/24 05:30> Additional Instructions: Return if symptoms are worsening , call your family physician for appointment, take Tylenol, ibuprofen as as needed for aches and pain, continue home medications. <Ben Tirado MD - Last Filed: 11/21/24 05:30> Patient Language: Mohawk <Ben Tirado MD - Last Filed: 11/21/24 05:30> Prescriptions: No Action albuterol sulfate 90 mcg/actuation HFA aerosol inhaler 2 puff inhalation Q4-6H PRN (Reason: shortness of breath or wheezing) 30 Days Qty: 25.5 2RF amlodipine 10 mg tablet 10 mg PO DAILY Qty: 90 2RF losartan 100 mg tablet 100 mg PO DAILY Qty: 90 2RF tamsulosin 0.4 mg capsule 0.4 mg PO DAILY Qty: 90 2RF cholecalciferol (vitamin D3) 50 mcg (2,000 unit) capsule 50 mcg PO DAILY Qty: 90 2RF Vraylar 3 mg capsule 3 mg PO DAILY Qty: 90 2RF quetiapine 200 mg tablet 200 mg PO DAILY Qty: 90 2RF testosterone cypionate 200 mg/mL oil 200 mg IM .Q14 days Qty: 100 2RF Rx Instructions: as a single dose dextroamphetamine-amphetamine [Adderall] 30 mg tablet 30 mg PO BID Qty: 60 0RF Rx Instructions: administer doses at least 4-6 hours apart triamcinolone acetonide 0.1 % ointment 1 applic topical TID Qty: 80 0RF <Ben Tirado MD - Last Filed: 11/21/24 05:30> Follow-up/Referrals: Yuri Iniguez MD [Primary Care Provider] - <Ben Tirado MD - Last Filed: 11/21/24 05:30>
--- OUTSIDE RECORDS SUMMARY | 2024-11-21 05:18 | XMS_ITS | Clinical Summary ---
Author Organization [facility] Address [address] [place] [address] Care Team Providers Care Customer Service Receptionist Name Role Phone Kenroy Helms MD Primary Care Provider [phone] Source Comments [facility],non-owned Affiliates and Associated Physician Practices is amultiple site organization consisting of ambulatory clinics and hospital sitesin [place], [place], [place] and [place]. This disclosure is being madepursuant to the Care Everywhere program and may not contain all information available regarding this patient. 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
--- OUTSIDE RECORDS SUMMARY | 2024-11-21 05:18 | XMS_ITS | Clinical Summary ---
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
--- OUTSIDE RECORDS SUMMARY | 2024-11-21 05:18 | XMS_ITS | CONTINUITY OF CARE DOCUMENT ---
Author Name narcisa brewster Address Unknown Organization [facility] Address [address] [place] [address] Phone [phone] Care Team Providers Care Gate Tender Name Role Phone Stephen Muñoz MD Unavailable HUMBERTO FAULKNER MD Unavailable HUMBERTO FAULKNER MD Unavailable [phone] PROBLEMS Condition Status Date Provider Notes Chest pain-type to be determined active Tamica Muñoz MD Arm pain active Stephen Muñoz MD Shortness of breath on exertion active Kaitlin Muñoz MD Near syncope active Stephen Muñoz MD ENCOUNTERS Date Type Provider Location Encounter Diag nosis - In-person encounter Office Visit Stephen Muñoz MD [facility] Office - In-person encounter Office Visit Stephen Muñoz MD [place] [facility] Chest pain-type to be determinedArm painShortness [...] MG ORAL TABLET active twice daily 9 Emggan Donna LISINOPRIL 20 MG ORAL TABLET active [...] Payer name Policy type / Coverage type [place] red green party ID [facility] [id number] TREATMENT PLAN Date Name Performer Cardiology: He [...] Stephen Muñoz MD Date Name DLCO - 39637 FRC - 99693 FVC - 45971 Carotid Duplex Bilat eral STR - Routine Complete Echo HISTORY OF PROCEDURES Procedure Date Procedure Name Provider Procedure Notes S tatus SNOMED-CT: 04850957 Physical Exam, Performed: Pulse Exam of Foot Stephen Muñoz MD completed SNOMED-CT: 253414489 158209 Current Medications Documented Stephen Muñoz MD completed Stress EKG Stephen Muñoz MD completed SNOMED-CT: 158319417 448669 Current Medications Documented Stephen Muñoz MD completed SNOMED-CT: 47791490 Physical Exam, Performed: Pulse Exam of Foot Stephen Muñoz MD completed
[2024-11-21 05:25] LABS: Alanine Aminotransferase 33 U/L (6-50); Albumin Level 4.7 g/dL (3.5-5.1); Alkaline Phosphatase 68 U/L (38-126); Anion Gap 10 mmol/L (4-12); Aspartate Amino Transferase 33 U/L (17-59); Bilirubin,Total 0.5 mg/dL (0.2-1.3); Blood Urea Nitrogen 15 mg/dL (9-20); Calcium 9.4 mg/dL (8.4-10.2); Carbon Dioxide 26 mmol/L (22-30); Chloride 101 mmol/L (98-107); Estimated CRCL calculation 100 ml/min; Estimated Glomerular Filt Rate > 60; Glucose 96 mg/dL (65-110); Lipase 89 U/L (23-300); Potassium 3.8 mmol/L (3.4-5.0); Sodium 137 mmol/L (137-145)
[2024-11-21 05:28] LABS: Add Urine Microscopic? NO; Appearance Urine Clear (Clear); Bilirubin Urine Negative (Negative); Blood Urine Negative (Negative); Color Urine Yellow (Yellow); Glucose Urine UA Negative (Negative); Ketones Urine Negative (Negative); Leukocyte Esterase Ur Negative LEU/UL (Negative); Nitrate Urine Negative (Negative); Protein Urine Negative (Negative); Specific Grav Ur 1.019 (1.001-1.035); Urobilinogen Urine 0.2 mg/dL (<2.0)
[2024-11-21 05:54] VITALS: BP 115/81; PULSE 75; RESP 14; TEMP 36.6; O2SAT 97
[2024-11-21 06:19] VITALS: BP 128/69; PULSE 63; RESP 16; O2SAT 98
[2024-11-21 06:32] VITALS: BP 105/90; PULSE 65; RESP 16; O2SAT 97
[2024-11-21 07:45] VITALS: BP 106/53; PULSE 64; RESP 14; O2SAT 98
[2024-11-21 09:29] VITALS: BP 119/78; PULSE 70; RESP 14; O2SAT 95
== END 2024-11-21 09:30 | disposition home or self-care (01) ==
PROVIDERS: Emergency Medicine; Emergency Provider Emergency Medicine; PCP Emergency Medicine
DX: M54.50 Low back pain, unspecified (principal); I10 Essential (primary) hypertension; E78.5 Hyperlipidemia, unspecified; G47.9 Sleep disorder, unspecified; F31.9 Bipolar disorder, unspecified; F90.9 Attention-deficit hyperactivity disorder, unspecified type; Z87.442 Personal history of urinary calculi; Z87.891 Personal history of nicotine dependence; N20.0 Calculus of kidney; Z79.899 Other long term (current) drug therapy
CPT/HCPCS: 36415; 74176; 76870; 80053; 81003; 83690; 85025; 93976; 96361; 96374; 96375; 99284; J2270; J2405; J7030

== ENCOUNTER 2024-12-03 15:32 | Outpatient (CLI) | payer OTHER, SELFPAY ==
--- NOTE | ~2024-12-03 | XR_ITS ---
Lumbosacral Spine: AP and lateral views Clinical History: Pain Findings: The normal lordotic curve is maintained. No fracture or dislocation. There is moderate to a dvanced degenerative disc narrowing at L4-L5. The sacroiliac joints are normally outlined. Impression: Moderate to advanced degenerative disc narrowing at L4-L5. Reviewed, dictated and finalized at [facility]. Impression: Moderate to advanced degenerative disc narrowing at L4-L5.
--- OUTSIDE RECORDS SUMMARY | 2024-12-03 16:13 | XMS_ITS | Clinical Summary ---
Author Organization [facility] [employer] Address [address] [place] [address] Care Team Providers Care Fish Packer Name Role Phone Kenroy Helms MD Primary Care Provider [phone] Source Comments [facility],non-owned Affiliates and Associated Physician Practices is amultiple site organization consisting of ambulatory clinics and hospital sitesin [place], [place], [place] and [place]. This disclosure is being madepursuant to the Care Everywhere program and may not contain all information available regarding this patient. 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
--- OUTSIDE RECORDS SUMMARY | 2024-12-03 16:13 | XMS_ITS | CONTINUITY OF CARE DOCUMENT ---
Author Name narcisa brewster Address Unknown Organization [facility] Address [address] [place] [address] Phone [phone] Care Team Providers Care Antique Dealer Name Role Phone Stephen Muñoz MD Unavailable HUMBERTO FAULKNER MD Unavailable [phone] HUMBERTO FAULKNER MD Unavailable PROBLEMS Condition Status Date Provider Notes Chest pain-type to be determined active Tamica Muñoz MD Arm pain active Stephen Muñoz MD Shortness of breath on exertion active Kaitlin Muñoz MD Near syncope active Stephen Muñoz MD ENCOUNTERS Date Type Provider Location Encounter Diag nosis - In-person encounter Office Visit Stephen Muñoz MD [facility] Office - In-person encounter Office Visit Stephen Muñoz MD [place] [facility] Chest pain-type to be determinedArm painShortness [...] Payer name Policy type / Coverage type [place] red [employer] party ID [facility] [id number] TREATMENT PLAN Date Name Performer Cardiology: He [...] Stephen Muñoz MD Date Name DLCO - 28044 FRC - 20921 FVC - 37713 Carotid Duplex Bilat eral STR - Routine Complete Echo HISTORY OF PROCEDURES Procedure Date Procedure Name Provider Procedure Notes S tatus SNOMED-CT: 34899140 Physical Exam, Performed: Pulse Exam of Foot Stephen Muñoz MD completed SNOMED-CT: 672027988 273211 Current Medications Documented Stephen Muñoz MD completed Stress EKG Stephen Muñoz MD completed SNOMED-CT: 153014737 563830 Current Medications Documented Stephen Muñoz MD completed SNOMED-CT: 93427754 Physical Exam, Performed: Pulse Exam of Foot Stephen Muñoz MD completed
--- OUTSIDE RECORDS SUMMARY | 2024-12-03 16:13 | XMS_ITS | Clinical Summary ---
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
== END 2024-12-03 15:33 | disposition home or self-care (01) ==
PROVIDERS: PCP Emergency Medicine; Visit Provider Emergency Medicine
DX: M51.369 Other intervertebral disc degeneration, lumbar region without mention of lumbar back pain or lower extremity pain (principal); S39.012A Strain of muscle, fascia and tendon of lower back, initial encounter
CPT/HCPCS: 72100

== ENCOUNTER 2024-12-22 13:37 | Outpatient (CLI) | payer OTHER, SELFPAY ==
--- NOTE | ~2024-12-22 | MR_ITS ---
MRI of the lumbar spine Clinical History: Radiculopathy Technique: Axial T2-weighted images, and sagittal T1-weighted, T2-weighted, and T2 fat-sat images wer e acquired. Findings: No fracture seen. Minimal grade 1 retrolisthesis of L2 over L3. At L1-L2, there is mild degenerative disc narrowing. No significant disc bulge or herniation. No spin al canal stenosis or neural foraminal narrowing. At L2-L3, there is mild degenerative disc narrowing. There is mild disc bulge and mild facet arthropa thy. No central canal stenosis. There is minimal neural foraminal narrowing bilaterally. At L3-L4, there is mild disc bulge and mild facet arthropathy. No central canal stenosis. There is mi nimal bilateral neural foraminal narrowing. At L4-L5, there is moderate degenerative disc narrowing. There is minimal disc bulge. No spinal canal stenosis or neural foraminal narrowing. At L5-S1, there is diffuse disc bulge with moderate facet arthropathy. No central canal stenosis. The re is moderate to advanced bilateral neural foraminal narrowing. Paravertebral soft tissues are unremarkable. Impression: Moderate degenerative spondylosis at L5-S1. Mild degenerative spondylosis overall otherwise, as detailed above. Reviewed, dictated and finalized at location . Impression: Moderate degenerative spondylosis at L5-S1. Mild degenerative spondylosis overall otherwise, as detailed above.
--- OUTSIDE RECORDS SUMMARY | 2024-12-22 13:43 | XMS_ITS | Data Portability ---
Author Organization [facility] Address [address] [place] [phone] Assessment No assessment recorded. Plan of Treatment Reminders Order Date Submit Date Provider Last Modified By Organization Details Last Modified Time Details Appointments None recorded. Lab None recorded. Referral physical therapy back referral 2016 017 [email or web address], [address] [place], [address], 7 12:02:26 Procedures None recorded. Surgeries None recorded. Imaging XR, chest, 2 view [address] ([facility]), [address] [place], [address], 7 16:36:14 Medication Orders dicyclomin e 10 mg capsule 2016 017 [facility]89277, [address] [place], [place], [id number], 7 13:11:19 Viberzi 100 mg tablet 2016 017 [address] [facility] [address] [address] [place], [place], [id number], 7 13:11:30 Viberzi 100 mg tablet 2016 017 [address] [facility], [address] [place], [place], [id number], 7 19:03:19 montelukas t 10 mg tablet 2016 017 [facility] [address] [place], [place], [id number], 7 13:11:20 Flovent HFA 110 mcg/actuat ion aerosol inhaler 2016 017 [facility] [address] [place], [place], [id number], 7 13:11:22 Combivent Respimat 20 mcg-100 mcg/actuat ion solution for inhalation 2016 017 [facility], [address] [place] [address], [id number], 7 13:11:20 fluticason e propionate 50 mcg/actuat ion nasal spray,susp ension 2016 017 [facility], [address] [place], [place], [id number], 7 13:11:22 carisoprod ol 350 mg tablet [address] [facility]63570, [address] [place], [place], [id number], 7 13:11:30 omeprazole 20 mg capsule,de layed release 2016 017 [facility], [address] [place], [place], [id number], 7 13:11:20 lisinopril 20 mg tablet 2016 017 [facility], [address] [place], [place], [address], 7 13:11:21 Bystolic 10 mg tablet 2016 017 [facility], [address] [place], [place], [id number], 7 13:11:23 escitalopr am 20 mg tablet 2016 017 [facility] #33587, [address] [place], [place], [id number], 7 13:11:23 cetirizine 10 mg tablet 2016 017 [facility] #18449, [address] [place], [place], [id number], 7 13:11:24 Patient TargetsNo targets recorded. Patient InstructionsNo instructions recorded. Reason for Referral Referring Physician: Kenroy Helms, Internal Medicine, Encounter Date: 08/31/2016 Results Created Date Observation Date Name Description Value Unit Range Abnormal Flag Note LastModifiedBy Organization Detail LastModifiedTime 05/23/20 17 05/23/2017 XR, cervi sukhdev spine , 4 or 5 view No observ ation record ed. [address] [place], [address], 05/27/2017 10:05:21 05/23/20 17 05/23/2017 US, head + neck, soft tissu e No observ ation record ed. [address] [place], [address], 05/27/2017 10:04:57 05/24/20 17 05/23/2017 XR, lumba r spine No observ ation record ed. [address] (Imaging) [address] [place], [address], 05/27/2017 10:04:09 Result Notes None recorded. Problems Name Problem SNOMED Code Status Onset Date Resolution Date Notes Provider Name and Address Organization Details Recorded Time Essential hypertension 53746425 Active 2016 Kenroy Helms MD Attn: Accountin g,[address] [facility], [place], [address], [place] [facility] 7 12:52:18 Asthma 550100453 Active 2016 Kenroy Helms MD Attn: Accountin g,[address] [facility], [place], [address], [place] [facility] 7 12:52:26 Gastroesophage al reflux disease without esophagitis 435639480 Active 2016 Kenroy Helms MD Attn: Accountin g,[address] [facility], [place], [address], [place] [facility] 7 12:52:49 Irritable bowel syndrome 47143730 Active 2016 Kenroy Helms MD Attn: Accountin g,[address] [facility], [place], [address], [place] [facility] 7 12:53:09 Bipolar disorder 73840051 Active 2016 Kenroy Helms MD Attn: Accountin g,[address] [facility], [place], [address], [place] [facility] 7 12:53:26 Depressive disorder 71769676 Active 2016 Kenroy Helms MD Attn: Accountin g,[address] [facility], [place], [address], [place] [facility] 7 13:03:09 Serous otitis media 90039766 Active 2016 Kenroy Helms MD Attn: Marinain g,[address] [facility], [place], [address], [place] [facility] 7 13:06:31 Chronic back pain 239223647 Active 2016 Kenroy Helms MD Attn: Teofilo g,[address] [facility], [place], [address], [place] [facility] 7 13:08:35 Allergic rhinitis 39025634 Active 2016 Kenroy Helms MD Attn: Teofilo blackburn,[address], [place], [address], [place] [facility] 7 16:33:01 Cough 52304556 Active 2016 Kenroy Helms MD Attn: Teofilo blackburn,[address], [place], [address], [place] [facility] 7 16:33:22 Problem Notes None recorded. Procedures Surgical History Date Name Laterality Status Provider Name and Address Organization Details Recorded Time Carpal tunnel surgery completed Robbie Joshi [place] - [place] 08/31/2016 11:31:52 Eye Surgery completed Robbie Joshi [place] - [facility] 0 08/31/2016 11:32:00 Imaging Results Imaging Date Name Status LastModified by Organiz ation Details LastModified Time 05/23/2017 XR, cervical spine, 4 or [address] view [address] [place], [address], 05/27/2017 10:05:21 05/23/2017 US, head + neck, soft tissue completed [email or web address] [address] [place], [address], 05/27/2017 10:04:57 05/23/2017 XR, lumbar spine completed [address] (Imaging) [address] [place], [address], 05/27/2017 10:04:09 Procedure Notes None recorded. Medical Equipment None Reported. Allergies Allergen ID Allergen Name Allergen Category Reaction Reaction Severity Criticality Documentation Date Start Date Code Code System Note Provider Name and Address Organization Details Recorded Time 05381 tramadol medicatio n itching moderate Not available 08/31/2016 07328 RxNorm Robbie duncan [place] - [facility] 7 11:27:49 Medications Name Sig Start Date Stop Date [...] and Address Organization Details Last Updated DateTime 7 170.18 cm 92731.4 6 g 32.3 kg/m2 98.4 [degF] 99 % 99 % 80 /min 20 /min 126 mm[Hg] 84 mm[Hg] Robbie Joshi [facility] 7 11:27:22 Date Recorded Body height Body weight Body mass index (BMI) Body temperature Heart rate Oxygen saturation Oxygen saturation in Arterial blood by Pulse oximetry Respiratory rate Systolic blood pressure Diastolic blood pressure Provider Name and Address Organization Details Last Updated DateTime 7 170.18 cm 09628.0 7 g 31.5 kg/m2 97.7 [degF] 73 /min 98 % 98 % 20 /min 112 mm[Hg] 70 mm[Hg] Robbie Joshi [facility] 7 15:39:42 Social History None recorded. Functional Status None recorded. Mental Status None recorded. Family History Relationship Description Onset Age of this Age Resolved Age Notes LastModified by Organization Details LastModified Time Mother Attention deficit hyperactivit y disorder [email or web address] Not available 08/03 11:29:35 Mother Carcinoma of breast [email or web address] Not available 08/31 11:29:52 Mother Depressive disorder [email or web address] Not available 08/31 11:30:07 Mother Diabetes mellitus Not available 08/31 11:30:16 Mother Osteoporosis [email or web address] Not karuna ilable 08/31/2016 11:30:33 Father Hypertensive disorder [email or web address] Not available 08/31 11:30:46 Father Hyperlipidem ia [email or web address] Not available 08/31 11:30:57 Medical History No [...] SNOMED-CT Code Diagnosis ICD10 Code Diagnosis Note [id number] MD Justyn Faustin (Adult Med) [address] [place] [address] 08/31/2016 10:58:50 08/31/2016 14:32:45 Essential hypertension 41354490 I10 Irritable bowel syndrome 30081065 K58.9 Asthma 248973689 J45.90 9 Gastroesop hageal reflux disease without esophagitis 273334707 K21.9 Depressive disorder 3548 9007 F32.9 Serous otitis media 8032 7007 H65.93 Chronic back pain 770639 002 G89.29 [id number] Kenroy Helms MD [facility] (Adult Med) [address] [place] [address] 09/14/2016 15:17:59 2016 09:34:03 Asthma 406744455 J45.909 Allergic rhinitis 608582 04 J30.9 Continue current regimen Cough 11286288 R05 [id number] Gage Villegas MD [facility] (Adult Med) [address] [place] [address] 11/22/2020 18:51:10 11/25/2020 12:18:33 Administration of SARS-CoV-2 antigen vaccine 294407543 Z23 [id number] Gage Villegas MD [facility] (Adult Med) [address] [place] [address] 12/19/2020 15:04:26 01/01/2021 08:35:58 Administration of SARS-CoV-2 antigen vaccine 124180865 Z23 Health Concerns Section Related Observation LastModified by Organization Detai ls LastModified Time None Recorded Concern Status LastModified by Organization Details LastModified Time None Recorded Advance Directives Directive None Recorded Payers Encounter Date Sequence Insurance Name Policy Number Policy Mcnulty Covered Member ID Mcnulty Member ID Guarantor Name 08/31/2016 1 [place] [facility] Lionel Castorenaetsam [id number] Lionel Fietsam 09/14/2016 1 [facility] (MEDICAID HMO) [id number] Lionel Fietsam [id number] Lionel Fietsam 11/22/2020 1 [facility] (MEDICAID HMO) [id number] Lionel Castorenaetsam [id number] Lionel Fietsam 12/19/2020 1 [employer] [id number] Lionel Damon Fietsam [id number] Lionel Fietsam 12/19/2020 2 [place] [facility] Lionel Castorenaetsam [id number] Lionel Castorenaetsam Notes Date Note Type Note Provider Name and Address Organization Details Recorded Time 08/31/2016 text/html Changing physicians. Has a current URI. Has been treated in past for HTN, Asthma and IBS Kenroy Helms MD Attn: Accounting,[address] [place], [address], [facility] 09/01/2016 19:04:03 09/14/2016 text/html Recently seen . Concerned about no change in sx. Ne fever or chills. Does not smoke. Kenroy Helms MD Attn: Accounting,[address] [place], [address], [facility] 09/14/2016 16:37:08
--- OUTSIDE RECORDS SUMMARY | 2024-12-22 13:43 | XMS_ITS | Data Portability ---
Author Organization [facility], Main Office Address [address] [place] [address] Assessment Encounter Date Assessment Date Assessment LastModified [...] Lab TSH, serum or plasma [address] (Lab), [address] [place], [address], 3 16:55:21 CMP, serum or plasma [address] (Lab), [address] [place], [address], 3 16:57:05 CBC [address] (Lab), [address] [place], [address], 3 16:55:39 vitamin D, 25-hydroxy, total, serum [address] (Lab), [address] [place], [address], 3 16:56:41 testosteron e, free + total, serum [address] (Lab), [address] [place], [address], 3 16:53:49 vitamin B12 + folate, serum or blood [address] (Lab), [address] [place], [address], 3 16:54:[address] referral 2022 023 [facility], [facility] [place], [address], 3 16:05:20 Procedures None recorded. Surgeries None recorded. Imaging None recorded. Medication Orders losartan 100 mg tablet 2023 024 [facility]/Pharmacy #[id number], [address], [place], [address], 4 15:34:23 amlodipine 10 mg tablet 2023 024 [facility]/Pharmacy #[id number], [address] , [place], [address], 4 15:34:28 dextroamphe tamine-amph etamine 30 mg tablet 2023 024 [facility]/Pharmacy #[id number], [address] , [place], [address], 4 15:34:28 Vitamin D3 50 mcg (2,000 unit) capsule 2022 023 [facility]/Pharmacy #[id number], [address], [place], [address], 3 09:55:46 dextroamphe tamine-amph etamine 30 mg tablet 2022 023 [id number], [address], [place], [address], 3 09:55:47 dextroamphe tamine-amph etamine 30 mg tablet 2022 023 [facility]/Pharmacy #[id number], [address], [place], [address], 11:20:54 Patient TargetsNo targets recorded. Patient InstructionsNo instructions recorded. 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 L esion of external ear Referring Physician: Martine Arredondo, Family Medicine, Encounter Date: 01/27/2023 Results Created Date Observation Date Name Description Value Unit Range Abnormal Flag Note LastModifiedBy Organization Detail LastModifiedTime 02/02/20 23 02/01/2023 COMPR EHENS BREANA METAB OLIC PANEL glucose 69 mg/dL 65-99 normal Fasti ng refer ence inter rebecca Not Available [address] [address] [place], [address], 02/01/2023 17:01:44 02/02/2002/01/2023 COMPR EHENS BREANA METAB OLIC PANEL urea nitrogen (BUN) 7 mg/dL 7-25 normal Not Available [email or web address] [address] [address] [place], [address], 02/01/2023 17:01:44 02/02/2002/01/2023 COMPR EHENS BREANA METAB OLIC PANEL creatinine 1.13 mg/dL 0.60-1 .29 normal Not Available [email or web address] [address] [address] [place], [address], 02/01/2023 17:01:44 02/02/20 23 02/01/2023 COMPR EHENS [...] kdoqi /gfr% 5Fcal culat or Not Available [address] [address] [place], [address], 02/01/2023 17:01:44 02/02/20 23 02/01/2023 COMPR EHENS BREANA METAB OLIC PANEL BUN/creatini ne ratio NOT APPLIC ABLE (calc ) 6-22 Not Available [address], [address], 02/01/2023 17:01:44 02/02/20 23 02/01/2023 COMPR EHENS BREANA METAB OLIC PANEL sodium 141 mmol/ L 135-14 6 normal Not Available [email or web address] [address], [address], 02/01/2023 17:01:44 02/02/20 23 02/01/2023 COMPR EHENS BREANA METAB OLIC PANEL potassium 3.7 mmol/ L 3.5-5. 3 normal Not Available [email or web address] [address], [address], 02/01/2023 17:01:44 02/02/20 23 02/01/2023 COMPR EHENS BREANA METAB OLIC PANEL chloride 102 mmol/ L 98-110 normal Not Available [email or web address] [address], [address], 02/01/2023 17:01:44 02/02/20 23 02/01/2023 COMPR EHENS BREANA METAB OLIC PANEL carbon dioxide 25 mmol/ L 20-32 normal Not Available [email or web address] [address], [address], 02/01/2023 17:01:44 02/02/20 23 02/01/2023 COMPR EHENS BREANA METAB OLIC PANEL calcium 9.9 mg/dL 8.6-10 .3 normal Not Available [address], [address], 02/01/2023 17:01:44 02/02/20 23 02/01/2023 COMPR EHENS BREANA METAB OLIC PANEL protein, total 7.2 g/dL 6.1-8. 1 normal Not Available [address], [address], 02/01/2023 17:01:44 02/02/20 23 02/01/2023 COMPR EHENS BREANA METAB OLIC PANEL albumin 4.7 g/dL 3.6-5. 1 normal Not Available [address], [address], 02/01/2023 17:01:44 02/02/20 23 02/01/2023 COMPR EHENS BREANA METAB OLIC PANEL globulin 2.5 g/dL_ (calc ) 1.9-3. 7 normal Not Available [address], [place], [address], 02/01/2023 17:01:44 02/02/20 23 02/01/2023 COMPR EHENS BREANA METAB OLIC PANEL albumin/glob ulin ratio 1.9 (calc ) 1.0-2. 5 normal Not Available [address], [address], 02/01/2023 17:01:44 02/02/20 23 02/01/2023 COMPR EHENS BREANA METAB OLIC PANEL bilirubin, total 0.4 mg/dL 0.2-1. 2 normal Not Available [address], [address], 02/01/2023 17:01:44 07/04/20 23 02/01/2023 COMPR EHENS BREANA METAB OLIC PANEL alkaline phosphatase 58 U/L 36-130 normal Not Available [address], [address], 02/01/2023 17:01:44 02/02/20 23 02/01/2023 COMPR EHENS BREANA METAB OLIC PANEL AST 28 U/L 10-40 normal Not Available [address], [address], 02/01/2023 17:01:44 02/02/20 23 02/01/2023 COMPR EHENS BREANA METAB OLIC PANEL ALT 42 U/L 9-46 normal Not Available [address], [address], 02/01/2023 17:01:44 02/02/20 23 02/01/2023 CBC (H/H, RBC, INDIC ES, WBC, PLT) white blood cell count 6.2 thous and/u L 3.8-10 .8 normal Not Available [address], [address], 02/01/2023 17:01:45 02/02/20 23 02/01/2023 CBC (H/H, RBC, INDIC ES, WBC, PLT) red blood cell count 5.43 bora on/uL 4.20-5 .80 normal Not Available [address], [address], 02/01/2023 17:01:45 02/02/20 23 02/01/2023 CBC (H/H, RBC, INDIC ES, WBC, PLT) hemoglobin 17.3 g/dL 13.2-1 7.1 high Not Available [address], [address], 02/01/2023 17:01:45 02/02/20 23 02/01/2023 CBC (H/H, RBC, INDIC ES, WBC, PLT) hematocrit 51.0 % 38.5-5 0.0 high Not Available [address], [address], 02/01/2023 17:01:45 02/02/20 23 02/01/2023 CBC (H/H, RBC, INDIC ES, WBC, PLT) MCV 93.9 fL 80.0-1 00.0 normal Not Available [address], [address], 02/01/2023 17:01:45 02/02/20 23 02/01/2023 CBC (H/H, RBC, INDIC ES, WBC, PLT) MCH 31.9 pg 27.0-3 3.0 normal Not Available [address], [address], 02/01/2023 17:01:45 02/02/20 23 02/01/2023 CBC (H/H, RBC, INDIC ES, WBC, PLT) MCHC 33.9 g/dL 32.0-3 6.0 normal Not Available [address], [address], 02/01/2023 17:01:45 02/02/20 23 02/01/2023 CBC (H/H, RBC, INDIC ES, WBC, PLT) RDW 12.7 % 11.0-1 5.0 normal Not Available [address], [address], 02/01/2023 17:01:45 02/02/20 23 02/01/2023 CBC (H/H, RBC, INDIC ES, WBC, PLT) platelet count 328 thous and/u L 140-40 0 normal Not Available [address], [address], 02/01/2023 17:01:45 02/02/20 23 02/01/2023 CBC (H/H, RBC, INDIC ES, WBC, PLT) MPV 9.7 fL 7.5-12 .5 normal Not Available [address], [address], 02/01/2023 17:01:45 02/02/20 23 02/01/2023 CLPARDEEP T [...] with the physi олег name. Not Available [address], [address], 02/01/2023 17:01:45 02/02/20 23 02/01/2023 TSH TSH 1.00 mIU/L 0.40-4 .50 normal Not Available [address], [address], 02/01/2023 17:01:46 02/02/20 23 02/01/2023 VITAM IN B12/F OLATE , SERUM PANEL vitamin B12 432 pg/mL 200-11 00 normal Not Available [address], [address], 02/01/2023 17:01:46 02/02/20 23 02/01/2023 VITAM IN B12/F OLATE , SERUM PANEL folate, serum 9.3 NG/mL normal Refer ence Range Low: <3.4 Borde rline : 3.4-5 .4 Yolanda l: >5.4 Not Available [address], [address], 02/01/2023 17:01:46 07/04/20 23 02/01/2023 VITAM IN [...] /MS is recom aj d: order code 35861 (gilberto ents >2yrs ). See Note 1 Note 1 For addit ional omairar matthew lan refer to http: //[facility] nataly roberto ics.c om/fa q/FAQ 199 (This link is being provi ded for infor zohra nal/ educa santana l purpo ses only. ) Not Available [address] , [place], [address], 02/01/2023 17:01:47 02/02/20 23 02/01/2023 TESTO STERO NE, FREE (DIAL YSIS) AND TOTAL ,MS testosterone , total, MS 404 NG/dL 250-11 00 For addit ional infor mtathew lan refer to https ://ed ucati on.qu scotty [facility]. com/f aq/FA Q165 (This link is being provi ded for infor matio nal/e ducat ional purpo ses only. ) (Note ) This test was devel oped and its roselia tical perfo rmanc e jigar cteri stics have been deter mined by [employer]. It has not been clear ed or appro [place]er[place] by the FDA. This assay has been valid ated pursu ant to the CLIA regul ation s and is used for clini sukhdev purpo ses. Not Available [facility] [address] [address] [place], [address], 02/01/2023 17:01:48 02/02/20 23 02/01/2023 TESTO STERO NE, FREE (DIAL YSIS) AND TOTAL ,MS testosterone , free 64.3 pg/mL 35.0-1 55.0 (Note ) This test was devel oped and its roselia tical perfo rmanc e jigar cteri stics have been deter mined by [employer]. It has not been clear ed or appro [place]er[place] by the FDA. This assay has been valid ated pursu ant to the CLIA regul ation s and is used for clini sukhdev purpo ses. F med fusio n [address] [facility] [address] [place] [address] [phone] Tl hernandez MD NO COLLE CTION DATE RECEI [place]. WE HAVE USED THE DATE THE SPECI MEN WAS RECEI [place] BY THIS LABOR ATORY THE COLLE CTION DATE. IF THIS IS INCOR RECT, PLEAS E CONTA CT CLIEN T SERVI SHAVON. PHONE NUMBE R: [phone] Not Available [email or web address] [address] [address] [place], [address], 02/01/2023 17:01:48 01/25/20 24 01/25/2024 DRUG MONIT OR, PANEL 3, SCREE N, URINE amphetamines POSITI VE NG/mL <500 abnormal See Note A See Note A Not Available [email or web address] [address] [address] [place], [address], 01/25/2024 01:20:07 01/25/20 24 01/25/2024 DRUG MONIT OR, PANEL 3, SCREE N, URINE benzodiazepi drew NEGATI VE NG/mL <100 See Note A See Note A Not Available [email or web address] [address] [address] [place], [address], 01/25/2024 01:20:07 01/25/20 24 01/25/2024 DRUG MONIT OR, PANEL 3, SCREE N, URINE cocaine metabolite NEGATI VE NG/mL <150 See Note A See Note A Not Available [address], [place], [address], 01/25/2024 01:20:07 01/25/20 24 01/25/2024 DRUG MONIT OR, PANEL 3, SCREE N, URINE marijuana metabolite NEGATI VE NG/mL <20 See Note A See Note A Not Available [address], [place], [address], 01/25/2024 01:20:07 01/25/20 24 01/25/2024 DRUG MONIT OR, PANEL 3, SCREE N, URINE opiates NEGATI VE NG/mL <100 See Note A See Note A Not Available [address], [place], [address], 01/25/2024 01:20:07 01/25/20 24 01/25/2024 DRUG MONIT OR, PANEL 3, SCREE N, URINE oxycodone NEGATI VE NG/mL <100 See Note A See Note A Not Available [address], [place], [address], 01/25/2024 01:20:07 01/25/20 24 01/25/2024 DRUG MONIT OR, PANEL 3, SCREE N, URINE creatinine 68.3 mg/dL > or = 20.0 Not Available [address], [place], [address], 01/25/2024 01:20:07 01/25/20 24 01/25/2024 DRUG MONIT OR, PANEL 3, SCREE N, URINE pH 5.6 4.5-9. 0 Not Available [address], [place], [address], 01/25/2024 01:20:07 01/25/20 24 01/25/2024 DRUG MONIT OR, PANEL 3, SCREE N, URINE oxidant NEGATI VE mcg/m L <200 Not Available [id number] [place], [address], 01/25/2024 01:20:07 Result Notes None recorded. Problems Name Problem SNOMED Code Status Onset Date Resolution Date Notes Provider Name and Address Organization Details Recorded Time Benign hypertension 12640310 Active Not Available [facility] 3 19:53:08 Testicular hypofunction 827058338 Active Not Available [facility] 3 19:53:08 Asthma 892063824 Active Not Available [facility] 3 19:53:08 Microscopic hematuria 775133571 Active Not Available [facility] 3 19:53:08 Abdominal pain 09177951 Active Not Available [facility] 19:53:08 Undifferentia sriram attention deficit disorder 80217247 Active Not Available [facility] 3 19:53:08 Gastroesophag eal reflux disease 344871492 Active Not Available [facility] 3 19:53:08 Low back pain 039501557 Active Not Available [facility] 3 19:53:08 Chest pain 29546167 Active Not Available [facility] 3 19:53:09 Ureteric stone 21518163 Active Not Available [facility] 3 19:53:09 Attention deficit hyperactivity disorder, 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 Not Available [facility] 3 19:53:09 Sinusitis 43017907 Active Not Available [facility] 3 19:53:09 Moderate asthma 906827906 Active Not Available [facility] 3 19:53:09 Disorder of vitamin B12 357279695 Active Not Available [facility] 3 19:53:09 Gastrointesti nal Crohn's disease 758339432 Active Not Available [facility] 3 19:53:09 Anxiety 06957582 Active Not Available [facility] 3 19:53:09 Essential hypertension 47102411 Active Not Available [facility] 3 19:53:09 Diarrhea 31329424 Active Not Available [facility] 3 19:53:09 Spina bifida occulta 95429310 Active 2016 Not Available [facility] 3 19:53:09 Chronic rhinitis 02071176 Active Not Available [facility] 3 19:53:09 Seasonal allergy 798623465 Active 2022 Not Available [facility] 3 19:53:09 Lesion of external ear 221061781 Active 2022 Not Available [facility] 3 19:53:09 Malaise and fatigue 786302130 Active 2022 Not Available [facility] 3 19:53:08 Vitamin D deficiency 43192799 Active 2022 Not Available [facility] 3 19:53:09 Problem Notes None recorded. Medical Equipment None Reported. Allergies Allergen ID Allergen Name Allergen Category Reaction Reaction Severity Criticality Documentation Date Start Date Code Code System Note Provider Name and Address Organization Details Recorded Time 73492 tramadol medicatio n hives Not available Not available 09/29/2022 89058 RxNorm Not Available [facility] 3 07:35:34 Medications Name Sig Start Date [...] Available Not Available Nasonex 50 mcg/actuati on [place] active Not Available Not Available Not Available [...] Updated DateTime 3 170.18 cm 33.5 kg/m2 75727.7 7 g 100 [degF] 85 /min 98 % 98 % 138 mm[Hg] 90 mm[Hg] Sherri Oliver RN [facility] [employer] [facility] 3 10:43:16 Date Recorded Body height Body mass index (BMI) Body weight Provider Name and Address Organization Details Last Updated DateTime 06/03/2023 170.18 cm 32.9 kg/m2 44060.4 g Waleska Tsai A [facility] 06/03/2023 09:41:23 Date Recorded Body height Provider Name an d Address Organization Details Last Updated DateTime 01/19/2024 170.18 cm Rg Benson RN [facility] I [facility] [employer] [facility] 01/19/2024 16:54:30 Date Recorded Body height Body mass index (BMI) Body weight Body temperature Heart rate Oxygen saturation Oxygen saturation in Arterial blood by Pulse oximetry Systolic blood pressure Diastolic blood pressure Provider Name and Address Organization Details Last Updated DateTime 4 170.18 cm 29.6 kg/m2 40782.9 6 g 98.4 [degF] 95 /min 98 % 98 % 134 mm[Hg] 88 mm[Hg] Gisela Burns RN [facility] [employer] [facility] 4 15:21:17 Social History Question Answer Notes LastModified by Organization Details LastModified Time Tobacco Smoking Status Former Smoker KANWAL Menendez Ariana [place] [employer] [facility] 06/03/2023 09:39:59 Do You Have An Advance Directive? No [id number] Information not available 09/29/2022 Do You Wear A Helmet When Biking? No [email or web address] Information not available 06/03/2023 What Is Your Level Of Caffeine Consumption? Moderate [id number] Information not available 09/29/2022 In The 14 Days Before Symptom Onset, Have You Had Close Contact With A Laboratory-confi rmed COVID-19 While That Case Was Ill? No [email or web address] Information not available 06/03/2023 In The 14 Days Before Symptom Onset, Have You Had Close Contact With A Person Who Is Under Investigation For COVID-19 While That Person Was Ill? No [email or web address] Information not available 06/03/2023 What Type Of Diet Are You Following? REGULAR [id number] Information not available 09/29/2022 What Is The Highest Grade Or Level Of School You Have Completed Or The Highest Degree You Have Received? [id number] [email or web address] Information not available 06/03/2023 Have There Been Any Changes To Your Family Or Social Situation? Yes Mom Passed [email or web address] Information not available 06/03/2023 What Is The Fluoride Status Of Your Home? Unknown [email or web address] Information not available 06/03/2023 When Did You Quit Smoking? 11-15yearssincelast cigarette Information not available 06/03/2023 Are There Any Guns Present In Your Home? No Information not available 06/03/2023 Do You Use Insect Repellent Routinely? Yes [email or web address] Information not available 06/03/2023 Where Do You Live? SingleLevelHouse Information not available 06/03/2023 Do You Have A Medical Power Of Extension Service Specialist? No Information not available 06/03/2023 Do You Have Any Pets? Yes [email or web address] Information not available 06/03/2023 What Is Your Relationship Status? [id number] Information not available 09/29/2022 Do You Use Your Seat Belt Or Car Seat Routinely? Yes [email or web address] Information not available 06/03/2023 Do You Have Smoke And Carbon Monoxide Detectors In Your Home? Yes [email or web address] Information not available 06/03/2023 At What Age Did You Start Smoking Tobacco? 13 [email or web address] Information not available 06/03/2023 Are You Passively Exposed To Smoke? No [email or web address] Information not available 06/03/2023 Are There Any Smokers In Your House? No [email or web address] Information not available 06/03/2023 Do You Participate In Social Media? Yes [email or web address] Information not available 06/03/2023 Do You Use Sunscreen Routinely? Yes [email or web address] Information not available 06/03/2023 How Many Years Have You Smoked Tobacco? 15 Information not available 06/03/2023 Have You Recently Traveled Abroad? No [email or web address] Information not available 06/03/2023 Are You Currently In School? No Information not available 06/03/2023 Do You Have Any Dietary Restrictions? No [email or web address] Information not available 06/03/2023 Sex: Unknown Functional Status Question Answer Note LastModified by Organizat ion Details LastModified Time Do you use any illicit or recreational drugs? No Information not available 06/03/2023 Do you or have you ever used any other forms of tobacco or nicotine? No [email or web address] Information not available 06/03/2023 What is your level of alcohol consumption? 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 Heavy [id number] Information not available 09/29/2022 Mental Status Question Answer Note LastModified by Organization D etails LastModified Time Do you feel stressed (tense, restless, nervous, or anxious, or unable to sleep at night)? [id number] [email or web address] Information not available 06/03/2023 Family History Nothing Reported. Medical History No medical history recorded. Immunizations Vaccine Type Date Status Note Provider Nam e and Address Organization Details Recorded Time Influenza, split virus, quadrivalent, PF 04/21/2022 completed Not Available [facility] 3 19:53:09 Influenza, split virus, quadrivalent, PF 05/05/2015 completed Not Available [facility] 3 19:53:09 Past Encounters Encounter ID Performer Location Encounter Start Date Encounter Closed Date Diagnosis/Indication Diagnosis SNOMED-CT Code Diagnosis ICD10 Code Diagnosis Note [id number] MARSHA Newton [facility] [place] [address] [place] [address] 10/22/2020 00:00:00 10/22/2020 13:18:15 [id number] Meggan Swift MD [facility] [place] [address] [place] [address] 02/27/2021 00:00:00 02/27/2021 08:37:54 [id number] CODY Sims [facility] [place] [address] [place] [address] 05/29/2021 00:00:00 05/29/2021 08:29:54 [id number] CODY Sims [facility] [place] [address] [place] [address] 08/07/2021 00:00:00 08/07/2021 16:46:57 [id number] MARSHA Newton [facility] [place] [address] [place] [address] 11/11/2021 00:00:00 11/11/2021 20:20:43 [id number] MARSHA Newton [facility] [place] [address] [place] [address] 04/02/2022 00:00:00 04/02/2022 17:15:33 [id number] CODY Sims [facility] [place] [address] [place] [address] 04/21/2022 00:00:00 04/21/2022 13:06:10 [id number] MARSHA Newton [facility] [place] [address] [place] [address] 11/05/2022 15:55:09 11/05/2022 16:33:55 Seasonal allergy 954796376 J30.2 ChronicNot well controlled off medication Resume [...] Attention deficit hyperactivity disorder, predominantly inattentive type 27021174 F90.0 ChronicCur rently stable with stimulant medication [...] new or concerning symptoms. Medication monitoring 39 4329278 Z51.81 Stable with current dose of dextroamph etamine-am phetamine (Adderall) Pt denies any lending, selling, or borrowing of medication s. Denies any cp, sob, palpitatio ns, or unusual weight loss.Revie wed controlled substance agreement requiremen ts. Refill given.[place] PDMP checked and appropriat eDue for UDS. Pt agrees to come into office next week to complete.R TO 3 months for routine f/u appt. [id number] MARSHA Newton [facility] [address] [facility] [facility] [address] [facility] [address] [place] [address] 11/10/2022 10:04:10 11/10/2022 10:34:24 [id number] MARSHA Newton [facility] [address] [facility] [address] [place] [address] 01/27/2023 10:38:36 01/27/2023 12:51:49 Testicular hypofunction 482865245 E29.1 Chronic, current status unknownWil l check T2 level Lesion of external ear 866117486 H61.899 New problemLes ion to upper portion of right auricleWil l refer to derm for further evaluation /tx to evaluate for possible malignancy . 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 Will check labs to evaluate for low T and anemias. Attention deficit hyperactivity disorder, predominantly inattentive type 85217452 F90.0 ChronicCur rently stable with stimulant medication [...] new or concerning symptoms. Medication monitoring 39 8971469 Z51.81 Stable with current dose of dextroamph etamine-am phetamine (Adderall) Pt denies any lending, selling, or borrowing of medication s. Denies any cp, sob, palpitatio ns, or unusual weight loss.Revie wed controlled substance agreement requiremen ts. Refill given.[place] checked 11/05/22 and appropriat eUDS appropriat e (10/2022).R TO 3 months for routine f/u appt. [id number] Meggan Swift MD [facility] Primary Care [facility] [address] [facility] [address] [place] [address] 06/03/2023 09:39:39 06/03/2023 10:12:04 Lesion of external ear 447417179 H61.899 -pt did f/u with derm for the lesion-was given a new ointment-h e notes that it seems to be improving- exam limited to phone visit Attention deficit hyperactivity disorder, predominantly inattentive type 40414089 F90.0 -Chronic-C urrently stable with stimulant medication .-He has been out of med d/t not having an appt-Pt denies lending, selling, trading medication s-refill dextroamph etamine-am phetamine given Medication monitoring 39 3943749 Z51.81 Stable with current dose of dextroamph etamine-am phetamine (Adderall) Pt denies any lending, selling, or borrowing of medication s. Denies any cp, sob, palpitatio ns, or unusual weight loss.Revie wed controlled substance agreement requiremen ts. Refill given.[place] checked 06/03/23 and appropriat eUDS due with next visit (09/2023).R TO 3 months for routine f/u appt. Vitamin D deficiency [id number] E55.9 -still noting some fatigue and malaise-pt does not take vitamin D currently- he is agreeable to start daily supplement , med sent-educvicky bhatia on getting 30 mins of direct sunlight/d ay [id number] ALICJA Lr [facility] [address] [place] [address] 01/19/2024 16:52:58 01/19/2024 16:59:19 [id number] ALICJA Lr [facility] [address] [place] [address] 05/30/2024 15:13:26 05/30/2024 15:34:26 Attention deficit hyperactivity disorder, predominantly inattentive type [id number] F90.0 chronic stable with use of meds Long-term drug therapy [id number] Z79.899 Pt denies any lending, selling, or borrowing of medication s. Denies any cp, sob, palpitatio ns, or unusual weight loss.Revie wed controlled substance agreement requiremen ts. Refill given.[place] checked today. Essential hypertension [id number] I[facility] Health Concerns Section Related Observation LastModified by Organization Detai ls LastModified Time None Recorded Concern Status LastModified by Organization Details LastModified Time None Recorded Advance Directives Directive N: Payers Encounter Date Sequence Insurance Name Policy Number Policy Mcnulty Covered Member ID Mcnulty Member ID Guarantor Name 11/10/2022 1 [employer] [id number] Lionel A Fietsam [id number] Lionel A Fietsam 11/10/2022 2 [place] [facility] Lionel A Fietsam [id number] Lionel A Fietsam 01/27/2023 1 [employer] [id number] Lionel A Fietsam [id number] Lionel A Fietsam 01/27/2023 2 [place] [facility] Lionel A Fietsam [id number] Lionel A Fietsam 06/03/2023 1 [employer] [id number] Lionel A Fietsam [id number] Lionel A Fietsam 06/03/2023 2 [place] [facility] Lionel A Fietsam [id number] Lionel A Fietsam 01/19/2024 1 [employer] [id number] Lionel A Fietsam [id number] Lionel A Fietsam 01/19/2024 2 [place] [facility] Lionel A Fietsam [id number] Lionel A Fietsam 05/30/2024 1 [employer]NA [id number] Lionel A Fietsam [id number] Lionel A Fietsam 05/30/2024 2 [place] [facility] Lionel A Fietsam [id number] Lionel A Fietsam Notes Date Note Type [...] it all the time. MARSHA Newton [address], [place], [address], [employer] 01/27/2023 13:31:47 06/03/2023 text/html Pt is a phone visit for med f/u Michelle duncan [employer] 09/21/2023 10:57:31 05/30/2024 text/html pt is here for f/u ALICJA Vargas [address], [address], [place], [address], [employer] 05/30/2024 15:35:29
--- OUTSIDE RECORDS SUMMARY | 2024-12-22 13:43 | XMS_ITS | CONTINUITY OF CARE DOCUMENT ---
Author Name narcisa brewster Address Unknown Organization [facility] Address [address] [place] [address] Phone [phone] Care Team Providers Care Mill Operator Helper Name Role Phone Stephen Muñoz MD Unavailable HUMBERTO FAULKNER MD Unavailable [phone] HUMBERTO FAULKNER MD Unavailable [phone] PROBLEMS Condition Status Date Provider Notes Chest pain-type to be determined active Tamica Muñoz MD Arm pain active Stephen Muñoz MD Shortness of breath on exertion active Kaitlin Muñoz MD Near syncope active Stephen Muñoz MD ENCOUNTERS Date Type Provider Location Encounter Diag nosis - In-person encounter Office Visit Stephen Muñoz MD [facility] - In-person encounter Office Visit Stephen Muñoz MD [facility] Chest pain-type to be determinedArm painShortness [...] Payer name Policy type / Coverage type [employer]zada red alliance party ID [facility] [id number] TREATMENT PLAN Date Name Performer Cardiology: He [...] Stephen Muñoz MD Date Name DLCO - 79214 FRC - 29823 FVC - 13974 Carotid Duplex Bilat eral STR - Routine Complete Echo HISTORY OF PROCEDURES Procedure Date Procedure Name Provider Procedure Notes S tatus SNOMED-CT: 66240012 Physical Exam, Performed: Pulse Exam of Foot Stephen Muñoz MD completed SNOMED-CT: 855555756 669294 Current Medications Documented Stephen Muñoz MD completed Stress EKG Stephen Muñoz MD completed SNOMED-CT: 083638356 575700 Current Medications Documented Stephen Muñoz MD completed SNOMED-CT: 84070409 Physical Exam, Performed: Pulse Exam of Foot Stephen Muñoz MD completed
--- OUTSIDE RECORDS SUMMARY | 2024-12-22 13:43 | XMS_ITS | Continuity of Care Document ---
Author Organization [facility] Address [address] [place] [address] Phone Care Team Providers Care Seal Delivery Vehicle Team Technician Name Role Phone Scooter Lee Unavailable Unavailable Procedures Procedure Date Remove Foreign Body From Eye Advance Directives Directive Yes / No Effective Date File Name No Information Encounters Encounter Description Practice Location Reason(s) For Visit Diagnoses Date Provider Providers Copied on Encounter [facility], [address], [place], [place], [id number], [place] tel:[phone] [facility] No Information Jesus Helms. [address] [place], [address], [place]. tel:[phone] Family History Family Member Type Diagnosis Age At Onset No Information Payers Payer name Insurance type Covered constitution party ID Authoriza tijudi(s) [facility] [id number] Social History Type Description Quantity Date Captured Comments Sex Male Smoking Status No Information Chief Complaint And Reason For Visit No Information Reason For Referral Reason For Referral No Information History Of Present Illness Encounter Date Complaint History Of Prese nt Illness No Information Functional Status Date Functional Assessmen t No Information Instructions Date Instruction Additional Infor mation No Information Assessments Type Assessment Date No Information Patient Care Teams Name Effective Dates (start - stop) Status Members No Information
--- OUTSIDE RECORDS SUMMARY | 2024-12-22 13:44 | XMS_ITS | Clinical Summary ---
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
--- OUTSIDE RECORDS SUMMARY | 2024-12-22 13:44 | XMS_ITS | Clinical Summary ---
Author Organization [facility] Address [address] [place] [address] Care Team Providers Care Gasfitter Name Role Phone Kenroy Helms MD Primary Care Provider Source Comments [facility],non-owned Affiliates and Associated Physician Practices is amultiple site organization consisting of ambulatory clinics and hospital sitesin [place], [place], [place] and [place]. This disclosure is being madepursuant to the Care Everywhere program and may not contain all information available regarding this patient. Last updated 18.[facility] Allergies Active Allergy Reactions Criticality Noted Date [...] fluticasone propionate (FLONASE) 50 MCG/ACT nasal spray Paoli 1 Paoli into each nostril 2 times daily 1 [...] on file Legal Sex Male 12:19 PM [employer] Gender Identity Not on file Sexual Orientation [...] OUT OF STATE PAYOR GENERIC Care Teams Gasfitter Relationship Specialty Start Date End Date Kenroy Helms MD [address] [place] [address] PCP - General Gastroenterology 09/03/16
== END 2024-12-22 13:38 | disposition home or self-care (01) ==
PROVIDERS: PCP Emergency Medicine; Visit Provider Emergency Medicine
DX: M54.16 Radiculopathy, lumbar region (principal); M47.817 Spondylosis without myelopathy or radiculopathy, lumbosacral region; M47.816 Spondylosis without myelopathy or radiculopathy, lumbar region
CPT/HCPCS: 72148

== ENCOUNTER 2025-05-01 17:26 | Emergency (ER) | payer OTHER, MEDICAID, SELFPAY ==
--- NOTE | ~2025-05-01 | XR_ITS ---
EXAMINATION: [id number], 05/01/2025 17:37 CDT HISTORY: RT upper chest/rib pain dropped barbell on chest 5x days ago COMPARISON: No comparisons available. Findings: No acute fracture or malalignment. No significant degenerative changes. Soft tissues unremarkable. Impression: No acute fracture or malalignment. Reviewed, dictated and finalized at location P. Impression: No acute fracture or malalignment.
--- NOTE | 2025-05-01 17:31 | ED_ITS ---
HPI - General Adult General Chief complaint: Extremity Injury, Upper Stated complaint: dropped barbell on chest Time Seen by Provider: 05/01/25 17:30 Source: patient Mode of arrival: ambulatory Limitations: no limitations History of Present Illness HPI narrative: Patient is a 44-year-old male who presents with right rib pain and chest wall pain after dropping are bowel on chest 6 days ago. 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 Reports pain is 7/10 stabbing when moving the heavy objects. Has not taken anything for pain. Denies any shortness of breath Related Data Allergies Allergy/AdvReac Type Severity Reaction Status Date / Time tramadol Allergy Intermediate Rash Verified 05/01/25 17:33 Review of Systems 2 Review of Systems: All systems reviewed & are unremarkable except as noted in HPI and below Constitutional: Constitutional: Denies body ache(s), Denies chills, Denies fatigue, Denies fever(s), Denies headache(s), Denies malaise and Denies weakness Eyes: Eyes: Denies blurry vision, Denies irritation and Denies loss of vision ENT: Denies otalgia, Denies headache(s), Denies nasal discharge, Denies sinus pain and Denies sore throat Cardiovascular: Cardiovascular: Denies chest pain, Denies irregular heart rhythm and Denies dyspnea Respiratory: Respiratory: Denies dyspnea Gastrointestinal: Gastrointestinal: Denies abdominal pain, Denies melena, Denies hematochezia, Denies diarrhea, Denies nausea and Denies vomiting Musculoskeletal: Musculoskeletal: Denies back pain, Denies myalgias, Denies arthralgias and Reports other (muscle pain) Integumentary/Breasts: Skin/Breast: Denies pruritus and Denies rash Neurologic: Denies headache(s), Denies loss of vision and Denies weakness Psychiatric: Psychiatric: Reports no additional psychiatric complaints Endocrine: Endocrine: Denies fatigue PMFSH Past Medical History Medical History Sleep disorder Bipolar disorder Low testosterone ADHD Hyperlipidemia Hypertension Family History Family History Father Hypertension Mother Asthma Social History Social History Smoking status: Former smoker Alcohol intake: current Alcohol use details: occasionally Substance use: never Substance use type: does not use Do You Feel Safe in your Home?: Yes Lack of Transportation: No Lack of Food: Never True Current Housing: Decline to Answer Concerned About Future Housing: Decline to Answer Difficulty Paying Gas/Electric Bills: Decline to Answer Difficulty Paying for Meds: Decline to Answer Currently Unemployed: Decline to Answer Education: Decline to Answer Difficulty w/ Childcare or Family Care: Decline to Answer Comments At time of signature, agree with nursing past medical, surgical, social and family history. There is no relevant family history pertinent to the presenting complaint. Exam 2 Const: General: cooperative, healthy appearing, comfortable, no acute distress and well nourished Nutritional Appearance: well nourished O rientation/consciousness: patient oriented x3 Limitations: no limitations HENMT: Head: normal to inspection, normocephalic and atraumatic Ears: h earing grossly normal bilaterally and external ears normal Face/Nose/Sinus: N ormal external nose present, normal facial exam and face symmetric Face and sinus: normal facial exam and face symmetric Mouth: Yes lip normal Eyes: General: appearance normal, both eyes and all related structures A lignment and Position: alignment normal and position normal Periorbital: p eriorbital findings normal Eyelids: eyelids normal Pupils: Equal, round and reactive pupils present EOM: EOMs intact bilaterally Neck: Neck: normal visual inspection, full ROM and supple Chest: Chest palpation & inspection: normal inspection of the chest and tenderness pectoral muscle on the right with point tenderness laterally Chest/axillae images: 1. Later stage of ecchymosis, tender on palpation Resp: Effort & Inspection: normal respiratory effort and able to speak in complete sentences Auscultation: clear to auscultation bilaterally Cardio: Rate: regular rate Rhythm: regular rhythm Heart sounds: S1 normal heart sound present and S2 normal heart sound present GI: Inspection: normal to inspection Skin: General skin exam: normal color and no rashes or lesions noted Neuro: General: patient oriented x3 and moves all extremities Cranial nerves: Yes Equal, round and reactive pupils present Speech: normal speech Gait exam (Neuro): Normal gait present Extrem: General: normal to inspection, full ROM and no edema Psych: Appearance: grossly normal and well kempt Mental Status: mental status grossly normal Speech and movement: Normal speech and movement present Affect: normal affect Attitude: cooperative Thought process: Normal thought process present Course Course Emergency Course: Patient is aware of diagnosis, understands and agrees to treatment plan. Anticipatory guidance given. Patient agrees to follow-up as directed and is aware of reasons to seek care at the emergency department. Portions of this record may have been created with voice recognition software Level of Care: Express Care Visit Vital Signs Vital signs: Reviewed Medical Decision Making MDM Narrative Medical decision making narrative: Will treat with steroids and muscle relaxers for muscle strain Pt well hydrated appearing, in no respiratory distress, hemodynamically stable. Recommend supportive care. The patient is stable at time of discharge the clinical impression was discussed and the patient was given the opportunity to ask questions, which were addressed as completely as possible given the information available at present. Anticipatory guidance and return to care precautions were discussed and the importance of primary care follow-up was stressed and encouraged. The patient voiced understanding of the plan, indications to return, and the need for follow-up. Exam findings show no acute concerns or changes Patient is appropriate for outpatient treatment and follow-up. Differential Diagnosis Differential Diagnosis: Contusion, muscle strain, costochondritis Medical Records Medical records reviewed: Yes I reviewed the external patient's medical records. Vital Signs Vital Signs: Reviewed Imaging Data Radiologist's impression: EXAMINATION: [id number], 05/01/2025 17:37 CDT HISTORY: RT upper chest/rib pain dropped barbell on chest 5x days ago COMPARISON: No comparisons available. Findings: No acute fracture or malalignment. No significant degenerative changes. Soft tissues unremarkable. Impression: No acute fracture or malalignment. Reviewed, dictated and finalized at location P. Discharge Plan Discharge Clinical Impression: Muscle strain of chest wall Qualifiers: Encounter type: initial encounter Qualified Code(s): S29.011A - Strain of muscle and tendon of front wall of thorax, initial encounter Patient Disposition: Home Condition: Stable Instructions: Musculoskeletal Pain (ED) Additional Instructions: Take steroids in the morning with food. Take muscle relaxers as needed. They may make you sleepy. Avoid activities that cause pain until the pain subsides. Ice to the area 20-30 minutes 4-6 times a day Follow up with your primary care provider if the condition is not improving within 1 week. If the condition worsens with numbness, tingling, decrease sensation with weakness seek treatment in the emergency room immediately. Jackeline blood pressure was elevated above 120/80 today at Urgent Care. This puts you above the threshold for follow up visit with a primary care provider. High blood pressure does not usually cause any symptoms, however it may lead to kidney failure, stroke, heart disease just to name a few if untreated . Many people are anxious when seeing a provider or nurse. As a result, you are not diagnosed with hypertension at this time unless your blood pressure is persistently high at two office visits at least one week apart. Some things that can help lower blood pressure are lifestyle modifications, such as light exercise, decreased salt in diet, and weight loss. It is important to follow up with a PCP about this within 1 week. Patient Language: Hebrew Prescriptions: New prednisone 20 mg tablet 40 mg PO DAILY 5 Days Qty: 10 0RF baclofen 10 mg tablet 10 mg PO TID 5 Days Qty: 15 0RF No Action icosapent ethyl [Vascepa] 0.5 gram capsule 0.5 g PO DAILY Qty: 90 2RF amlodipine 10 mg tablet 10 mg PO DAILY Qty: 90 2RF losartan 100 mg tablet 100 mg PO DAILY Qty: 90 2RF tamsulosin 0.4 mg capsule 0.4 mg PO DAILY Qty: 90 2RF cholecalciferol (vitamin D3) 50 mcg (2,000 unit) capsule 50 mcg PO DAILY Qty: 90 2RF Vraylar 3 mg capsule 3 mg PO DAILY Qty: 90 2RF quetiapine 200 mg tablet 200 mg PO DAILY Qty: 90 2RF testosterone cypionate 200 mg/mL oil 200 mg IM .Q14 days Qty: 100 2RF Rx Instructions: as a single dose dextroamphetamine-amphetamine [Adderall] 30 mg tablet 30 mg PO BID Qty: 60 0RF Rx Instructions: administer doses at least 4-6 hours apart Follow-up/Referrals: Yuri Iniguez MD [Primary Care Provider, Internal Medicine] - 3 Days Stand Alone Forms: Work/School Release IP Time of Disposition: 18:24
[2025-05-01 17:34] VITALS: BP 141/81; PULSE 67; RESP 16; TEMP 36.6; O2SAT 100
== END 2025-05-01 18:31 | disposition home or self-care (01) ==
PROVIDERS: Emergency Provider Nurse Practitioner Family; PCP Emergency Medicine
DX: S29.011A Strain of muscle and tendon of front wall of thorax, initial encounter (principal); W20.8XXA Other cause of strike by thrown, projected or falling object, initial encounter; I10 Essential (primary) hypertension; F90.9 Attention-deficit hyperactivity disorder, unspecified type; F31.9 Bipolar disorder, unspecified; E29.1 Testicular hypofunction; Z87.891 Personal history of nicotine dependence
CPT/HCPCS: 71101; 99213; G0463